=== PATIENT | female | born 1965 | race African-American/Black ===

== ENCOUNTER 2018-03-20 12:25 | Emergency (ER) | payer SELFPAY ==
[2018-03-20] MEDS ORDERED: ONDANSETRON 4 MG TAB.RAPDIS PO ONE (12:55)
[2018-03-20] MEDS ORDERED: ASPIRIN 81 MG TABLET, CHEWABLE PO ONE (12:55)
--- NOTE | 2018-03-20 12:56 | ER Document Report ---
ED Medical Screen (RME) - General Chief Complaint: Chest Pain Stated Complaint: CHEST WALL PAIN Time Seen by Provider: 03/20/18 12:50 Notes: RAPID MEDICAL EVALUATION DISCLOSURE I have seen this patient as part of a Rapid Medical Evaluation and, if applicable, placed any initially appropriate orders. The patient will be seen and fully evaluated, including a full history and physical exam, by a provider ( in Main ED or Fast Track) when a room becomes available. 52-year-old female here with complaints of some right-sided chest pain as well as neck pain ongoing for the past 3 months episodically however started back up again today earlier this morning. The pain is not worse with exertion. She cannot tell me what exactly makes it worse or better. She also complains of some new sore throat as well as upper abdominal pain and diarrhea but no vomiting. EXAM CTAB RRR No chest wall TTP TRAVEL OUTSIDE OF THE [place] IN LAST 30 DAYS: No - Related Data Allergies/Adverse Reactions: No Known Allergies Allergy (Verified 03/20/18 12:27) Past Medical History - Social History Chew tobacco use (# tins/day): No Frequency of alcohol use: None Drug Abuse: None - Past Medical History Cardiac Medical History: Denies: Hx Coronary Artery Disease, Hx Hypertension Endocrine Medical History: Denies: Hx Diabetes Mellitus Type 1, Hx Diabetes Mellitus Type 2 Renal/ Medical History: Denies: Hx Peritoneal Dialysis GI Medical History: Reports: Hx Ulcer Past Surgical History: Reports: Hx Abdominal Surgery - ruptured ulcer, Hx Section - x3, Other - History of hernia repair. Also history of perforated peptic ulcer. - Immunizations Hx Diphtheria, Pertussis, Tetanus Vaccination: Yes Physical Exam - Vital signs Vitals: Temp Pulse Resp BP Pulse Ox 98.9 F 92 18 123/78 96 03/20/18 12:37 03/20/18 12:37 03/20/18 12:37 03/20/18 12:37 03/20/18 12:37 Course - Vital Signs Vital signs: Temp Pulse Resp BP Pulse Ox 98.9 F 92 18 123/78 96 05/23/18 12:37 03/20/18 12:37 03/20/18 12:37 03/20/18 12:37 03/20/18 12:37
--- NOTE | 2018-03-20 13:11 | EKG REPORT ---
SEVERITY:- ABNORMAL ECG - SINUS RHYTHM CONSIDER LEFT VENTRICULAR HYPERTROPHY : Confirmed by: Bay Quinones MD 20-Mar-2018 13:10:59
[2018-03-20 13:40] LABS: HEMATOCRIT 42.4 % (36.0-47.0); HEMOGLOBIN 14.1 g/dL (12.0-15.5); MEAN CORPUSCULAR HEMOGLOBIN 29.2 pg (27.0-33.4); MEAN CORPUSCULAR HGB CONC 33.4 g/dL (32.0-36.0); MEAN CORPUSCULAR VOLUME 88 fl (80-97); PLATELET COUNT 290 10^3/uL (150-450); RED BLOOD COUNT 4.84 10^6/uL (3.72-5.28); RED CELL DISTRIBUTION WIDTH 14.3 % (11.5-14.0); WHITE BLOOD COUNT 7.5 10^3/uL (4.0-10.5)
--- NOTE | 2018-03-20 13:45 | RADIOLOGY REPORT (SQ) ---
EXAM DESCRIPTION: ACUTE ABDOMEN SERIES COMPLETED DATE/TIME: 03/20/2018 1:25 pm REASON FOR STUDY: c/o CP and abd pain w diarrhea COMPARISON: Abdomen series [id number] and chest 09/13/2016 NUMBER OF VIEWS: Three views. TECHNIQUE: Frontal chest, supine abdomen and upright/decubitus abdomen radiographic images acquired. LIMITATIONS: None. FINDINGS: CHEST: Patchy bibasilar changes, little change from prior study 2015 2008. Likely scarrin g. Correlate clinically. Upper lung craft clear. Heart stable. FREE AIR: None. No abnormal gas collections. BOWEL GAS PATTERN: Nonobstructive bowel pattern. Prominent air noted within the stomach. A few flui d levels are noted within nondilated bowel loops. CALCIFICATIONS: No suspicious calcifications. HARDWARE: None in the abdomen. SOFT TISSUES: No gross mass or suggestion of organomegaly. BONES: No acute fracture. No worrisome bone lesions. OTHER: No other significant finding. IMPRESSION: Nonobstructive bowel pattern. TECHNICAL DOCUMENTATION: JOB ID: [id number] [employer]- All Rights Reserved Reading location - IP/workstation name: [email or web address]
[2018-03-20] MEDS ORDERED: LIDOCAINE 2% VISCOUS SOLN 20 ML UDCUP PO ONE (13:57)
[2018-03-20] MEDS ORDERED: MAG HYDROX/AL HYDROX/SIMETH SUSP 30 ML UDCUP PO ONE (13:57)
--- NOTE | 2018-03-20 13:58 | ER Document Report ---
ED General - General Chief Complaint: Chest Pain Stated Complaint: CHEST WALL PAIN Time Seen by Provider: 03/20/18 12:50 Notes: 52-year-old female patient emergency department chief complaint of burning in her chest. Patient states symptoms been present on and off for about 2 months. Has a burning in the back of the throat. Pain in her abdomen. Pain radiates into her chest. Mostly located on the right side. Achiness up in her neck. Patient smokes. Denies any other major medical problems. Patient states that she had a ruptured ulcer which required surgery in 2008. States that since that time she has not had any other problems with ulcers. Denies any black tarry schools. Denies any vomiting of blood. Nothing seems to make it better or worse except for lying flat. When she lies flat it feels like it is burning in her chest more. TRAVEL OUTSIDE OF THE [place] IN LAST 30 DAYS: No - HPI Onset: Other - 2 months ago Onset/Duration: Gradual, Worse Quality of pain: Burning, Dull Severity: Moderate Pain Level: 2 Exacerbated by: Supine Relieved by: Denies Similar symptoms previously: Yes - Related Data Allergies/Adverse Reactions: No Known Allergies Allergy (Verified 03/20/18 12:27) Past Medical History - General Information source: Patient - Social History Smoking Status: Current Every Day Smoker Chew tobacco use (# tins/day): No Frequency of alcohol use: None Drug Abuse: None Lives with: Alone Family History: Reviewed & Not Pertinent Patient has suicidal ideation: No Patient has homicidal ideation: No - Past Medical History Cardiac Medical History: Reports: Hx Hypertension Denies: Hx Coronary Artery Disease Endocrine Medical History: Denies: Hx Diabetes Mellitus Type 1, Hx Diabetes Mellitus Type 2 Renal/ Medical History: Denies: Hx Peritoneal Dialysis GI Medical History: Reports: Hx Ulcer Past Surgical History: Reports: Hx Abdominal Surgery - ruptured ulcer, Hx Section - x3, Other - History of hernia repair. Also history of perforated peptic ulcer. - Immunizations Hx Diphtheria, Pertussis, Tetanus Vaccination: Yes Review of Systems - Review of Systems Constitutional: denies: Fever, Malaise, Weakness EENT: Throat pain, Dental problem. denies: Blurred vision, Ear pain, Difficulty swallowing, Mouth pain, Mouth swelling Cardiovascular: Chest pain. denies: Palpitations, Heart racing, Syncope, Dizziness, Lightheaded, Edema Respiratory: denies: Cough, Hurts to breathe, Short of breath, Wheezing Gastrointestinal: Abdominal pain. denies: Diarrhea, Nausea, Vomiting Genitourinary: denies: Burning, Dysuria, Discharge Female Genitourinary: denies: Vaginal discharge, Vaginal bleeding, Vaginal odor Musculoskeletal: denies: Back pain, Gout, Joint pain, Muscle pain, Muscle stiffness, Neck pain Skin: denies: Dryness, Lesions, Lumps, Rash Hematologic/Lymphatic: denies: Anemia, Blood clots, Easy bleeding, Easy bruising Neurological/Psychological: denies: Confusion, Weakness, Numbness Physical Exam - Vital signs Vitals: Temp Pulse Resp BP Pulse Ox 98.9 F 92 18 123/78 96 03/20/18 12:37 03/20/18 12:37 03/20/18 12:37 03/20/18 12:37 03/20/18 12:37 Interpretation: Normal - General General appearance: Appears well, Alert - HEENT Head: Normocephalic, Atraumatic Eyes: Normal Pupils: PERRL Sinus: Normal Nasal: Normal Mucous membranes: Normal Pharynx: Other - Poor dentition. Multiple broken teeth. No pharyngeal erythema. No uvular swelling. - Respiratory Respiratory status: No respiratory distress Chest status: Nontender Breath sounds: Normal Chest palpation: Normal - Cardiovascular Rhythm: Regular Heart sounds: Normal auscultation Murmur: No - Abdominal Inspection: Normal Distension: No distension Bowel sounds: Normal Tenderness: Nontender Organomegaly: No organomegaly - Back Back: Normal, Nontender - Extremities General upper extremity: Normal inspection, Nontender, Normal color, Normal ROM , Normal temperature General lower extremity: Normal inspection, Nontender, Normal color, Normal ROM , Normal temperature, Normal weight bearing. No: Kirill's sign - Neurological Neuro grossly intact: Yes Cognition: Normal Orientation: AAOx4 Veronica Coma Scale Eye Opening: Spontaneous Veronica Coma Scale Verbal: Oriented Veronica Coma Scale Motor: Obeys Commands Veronica Coma Scale Total: 15 Speech: Normal Motor strength normal: LUE, RUE, LLE, RLE Sensory: Normal - Psychological Associated symptoms: Normal affect, Normal mood - Skin Skin Temperature: Warm Skin Moisture: Dry Skin Color: Normal Course - Re-evaluation Re-evalutation: 03/20/18 14:27 Patient has unremarkable labs. Troponin negative. EKG unremarkable. X-ray of the abdomen and chest unremarkable. Normal LFTs. Bedside ultrasound performed which did not show a dilated or distended gallbladder. No obvious pericholecystic fluid. No free fluid in the abdomen. No pericardial effusion. More likely patient is having some reflux. Will advise her to follow-up with her regular doctor for further evaluation and treatment. We will give her follow-up information for benzene washer as well. I have given her a GI cocktail while in the emergency department. No significant change in her symptoms. Patient has a heart score of 2 indicating she has a low risk for M CONSUELO. 03/20/18 14:29 03/20/18 14:34 Laboratory 03/20/18 03/20/18 03/20/18 13:00 13:00 13:00 WBC 7.5 RBC 4.84 Hgb 14.1 Hct 42.4 MCV 88 MCH 29.2 MCHC 33.4 RDW 14.3 H Plt Count 290 Total Counted 100 Seg Neutrophils % Not Reportable Seg Neuts % (Manual) 43 Lymphocytes % Not Reportable Lymphocytes % (Manual) 52 H Monocytes % Not Reportable Monocytes % (Manual) 4 Eosinophils % Not Reportable Eosinophils % (Manual) 1 Basophils % Not Reportable Basophils % (Manual) 0 Absolute Neutrophils Not Reportable Abs Neuts (Manual) 3.2 Absolute Lymphocytes Not Reportable Abs Lymphs (Manual) 3.9 Absolute Monocytes Not Reportable Abs Monocytes (Manual) 0.3 Absolute Eosinophils Not Reportable Absolute Eos (Manual) 0.1 Absolute Basophils Not Reportable Abs Basophils (Manual) 0.0 Platelet Comment ADEQUATE Poikilocytosis 1+ Ovalocytes 1+ Mickey Cells 1+ Sodium 144.2 Potassium 4.6 Chloride 104 Carbon Dioxide 27 Anion Gap 13 BUN 5 L Creatinine 0.68 Est GFR ( Amer) > 60 Est GFR (Non-Af Amer) > 60 Glucose 101 Calcium 10.2 Total Bilirubin 0.2 Direct Bilirubin 0.2 Neonat Total Bilirubin Not Reportable Neonat Direct Bilirubin Not Reportable Neonat Indirect Bili Not Reportable AST 36 ALT 41 Alkaline Phosphatase 73 Troponin I < 0.012 Total Protein 7.8 Albumin 4.5 Lipase 287.7 Acute Abdomen Series 03/20/18 12:54 IMPRESSION: Nonobstructive bowel pattern. - Vital Signs Vital signs: Temp Pulse Resp BP Pulse Ox 98.9 F 92 18 123/78 96 03/20/18 12:37 03/20/18 12:37 03/20/18 12:37 03/20/18 12:37 03/20/18 12:37 - Laboratory Result Diagrams: 03/20/18 13:00 03/20/18 13:00 Laboratory results interpreted by me: 03/20/18 03/20/18 13:00 13:00 RDW 14.3 H Lymphocytes % (Manual) 52 H BUN 5 L - EKG Interpretation by Me EKG shows normal: Sinus rhythm, [place], Intervals, QRS Complexes, ST-T Waves Discharge - Discharge Clinical Impression: Esophageal spasm, Chest pain in adult Acid reflux disease Qualifiers: Esophagitis presence: esophagitis presence not specified Qualified Code(s): K21.9 - Gastro-esophageal reflux disease without esophagitis Condition: Good Disposition: HOME, SELF-CARE Instructions: Chest Pain of Unclear Cause ([facility]), Antacid Therapy ([facility]), Prilosec (Acid Pump Inhibitor) ([facility]), Reflux Disease (GERD) ([facility]) Prescriptions: Omeprazole Magnesium [Prilosec Otc] 20 mg PO DAILY 30 Days #30 tablet. Ranitidine HCl [Zantac] 150 mg PO BID 30 Days #60 tablet Referrals: MARISSA MELCHOR MD [Primary Care Provider] - Follow up as needed [facility] [Provider Group] - Follow up in 3-5 days
[2018-03-20 14:10] LABS: ABSOLUTE LYMPHOCYTES# (MANUAL) 3.9 10^3/uL (0.5-4.7); ABSOLUTE MONOCYTES # (MANUAL) 0.3 10^3/uL (0.1-1.4); ABSOLUTE NEUTROPHILS# (MANUAL) 3.2 10^3/uL (1.7-8.2); ALANINE AMINOTRANSFERASE 41 U/L (9-52); ALBUMIN 4.5 g/dL (3.5-5.0); ALKALINE PHOSPHATASE 73 U/L (38-126); ANION GAP 13 (5-19); ASPARTATE AMINO TRANSFERASE 36 U/L (14-36); BASOPHILS % (MANUAL) 0 % (0-2); BILIRUBIN,DIRECT 0.2 mg/dL (0.0-0.4); BILIRUBIN,TOTAL 0.2 mg/dL (0.2-1.3); BLOOD UREA NITROGEN 5 mg/dL (7-20); CALCIUM 10.2 mg/dL (8.4-10.2); CARBON DIOXIDE 27 mmol/L (22-30); CHLORIDE 104 mmol/L (98-107); EOSINOPHILS % (MANUAL) 1 % (0-6); GLUCOSE 101 mg/dL (75-110); LIPASE 287.7 U/L (23-300); LYMPHOCYTES % (MANUAL) 52 % (13-45); MONOCYTES % (MANUAL) 4 % (3-13); POTASSIUM 4.6 mmol/L (3.6-5.0); SEGMENTED NEUTROPHILS % (MAN) 43 % (42-78); SODIUM 144.2 mmol/L (137-145); TOTAL CELLS COUNTED 100; TOTAL PROTEIN 7.8 g/dL (6.3-8.2)
[2018-03-20 14:15] LABS: BURR CELLS 1+; OVALOCYTES 1+; POIKILOCYTOSIS 1+
[2018-03-20 14:16] LABS: PLATELET COMMENT ADEQUATE
[2018-03-20] MEDS ORDERED: FAMOTIDINE 20 MG TABLET PO ONE (14:32)
[2018-03-20 14:59] VITALS: BP 139/68
== END 2018-03-20 14:56 | disposition home or self-care (01) ==
LOC: ER 12:25
DX: K22.4 Dyskinesia of esophagus (principal); K21.9 Gastro-esophageal reflux disease without esophagitis; R07.9 Chest pain, unspecified; M54.2 Cervicalgia; F17.200 Nicotine dependence, unspecified, uncomplicated
CPT/HCPCS: 93005; 99285; 36415; 83690; 85025; 80053; 84484; 74022; 93010; S0119; J3490

== ENCOUNTER → 2018-03-21 | Outpatient (CLI) | payer OTHER ==
[2018-03-21 10:46] LABS: ABSOLUTE EOSINOPHILS # (AUTO) 0.1 10^3/uL (0.0-0.6); ABSOLUTE LYMPHOCYTES (AUTO) 2.8 10^3/uL (0.5-4.7); ABSOLUTE MONOCYTES (AUTO) 0.6 10^3/uL (0.1-1.4); ABSOLUTE NEUT (AUTO) 4.4 10^3/uL (1.7-8.2); BASOPHILS % (AUTO) 0.6 % (0-2); EOSINOPHILS % (AUTO) 1.6 % (0-6); HEMATOCRIT 44.9 % (36.0-47.0); HEMOGLOBIN 14.8 g/dL (12.0-15.5); LYMPHOCYTES % (AUTO) 35.2 % (13-45); MEAN CORPUSCULAR HEMOGLOBIN 29.1 pg (27.0-33.4); MEAN CORPUSCULAR HGB CONC 32.9 g/dL (32.0-36.0); MEAN CORPUSCULAR VOLUME 89 fl (80-97); MONOCYTES % (AUTO) 7.9 % (3-13); PLATELET COUNT 241 10^3/uL (150-450); RED BLOOD COUNT 5.08 10^6/uL (3.72-5.28); RED CELL DISTRIBUTION WIDTH 14.3 % (11.5-14.0); SEGMENTED NEUTROPHILS % (AUTO) 54.7 % (42-78); TOTAL CELLS COUNTED % (AUTO) 100 %; WHITE BLOOD COUNT 8.1 10^3/uL (4.0-10.5)
[2018-03-21 11:20] LABS: ALANINE AMINOTRANSFERASE 34 U/L (9-52); ALBUMIN 4.2 g/dL (3.5-5.0); ALKALINE PHOSPHATASE 72 U/L (38-126); ANION GAP 13 (5-19); ASPARTATE AMINO TRANSFERASE 31 U/L (14-36); BILIRUBIN,DIRECT 0.3 mg/dL (0.0-0.4); BILIRUBIN,TOTAL 0.3 mg/dL (0.2-1.3); BLOOD UREA NITROGEN 15 mg/dL (7-20); CALCIUM 10.1 mg/dL (8.4-10.2); CARBON DIOXIDE 26 mmol/L (22-30); CHLORIDE 102 mmol/L (98-107); CHOLESTEROL 159.32 mg/dL (0-200); GLUCOSE 83 mg/dL (75-110); POTASSIUM 4.6 mmol/L (3.6-5.0); SODIUM 140.6 mmol/L (137-145); TOTAL PROTEIN 7.5 g/dL (6.3-8.2); TRIGLYCERIDES 57 mg/dL (<150)
[2018-03-21 11:48] LABS: DIRECT LDL 74 mg/dL (<100)
== END ==
LOC: CCC 09:07
DX: Z00.00 Encounter for general adult medical examination without abnormal findings (principal)
CPT/HCPCS: 36415; 80053; 80061; 83036; 84443; 85025

== ENCOUNTER 2018-05-22 19:12 | Emergency (ER) | payer SELFPAY ==
--- NOTE | 2018-05-22 19:48 | ER Document Report ---
ED General - General Chief Complaint: Chest Pain Stated Complaint: NECK/CHEST/THROAT PAIN Time Seen by Provider: 05/22/18 19:44 Mode of Arrival: Ambulatory Information source: Patient Notes: Chief complaint: Right chest wall pain History of complain:( obtained from----patient) 52 years old female with multiple visit to the ED, and multiple medical problems, cocaine and cannabis abuse, smoking, had her last dose of cocaine last Sunday. Presents with right- sided chest wall pain and right-sided neck pain particularly over the pharyngeal region. Having cough largely dry cough. Denies any fever chills or other constitutional symptoms. Onset: As above Duration: Last few weeks Severity: Moderate Quality: Sharp Context: As above Exacerbating factor and relieving factors: Change of position REVIEW OF SYSTEMS: CONSTITUTIONAL : Denies fever, chills, or sweats. Denies recent illness. EENT: Denies eye, ear, throat, or mouth pain or symptoms. Denies nasal or sinus congestion or discharge. Denies throat, tongue, or mouth swelling or difficulty swallowing. CARDIOVASCULAR: Denies chest pain. Denies palpitations or racing or irregular heart beat. Denies ankle edema. RESPIRATORY: Denies cough, cold, or chest congestion. Denies shortness of breath, difficulty breathing, or wheezing. GASTROINTESTINAL: Denies distention. Denies nausea, vomiting, or diarrhea. Denies blood in vomitus, stools, or per rectum. Denies black, tarry stools. Denies constipation. GENITOURINARY: Denies difficulty urinating, painful urination, burning, frequency, blood in urine, or discharge. FEMALE GENITOURINARY: Denies vaginal bleeding, heavy or abnormal periods, irregular periods. Denies vaginal discharge or odor. MUSCULOSKELETAL: Denies back or neck pain or stiffness. Denies joint pain or swelling. SKIN: Denies rash, lesions or sores. HEMATOLOGIC : Denies easy bruising or bleeding. LYMPHATIC: Denies swollen, enlarged glands. NEUROLOGICAL: Denies confusion or altered mental status. Denies passing out or loss of consciousness. Denies dizziness or lightheadedness. Denies headache. Denies weakness or paralysis or loss of use of either side. Denies problems with gait or speech. Denies sensory loss, numbness, or tingling. Denies seizures. PSYCHIATRIC: Denies anxiety or stress. Denies depression, suicidal ideation, or homicidal ideation. ALL OTHER SYSTEMS REVIEWED AND NEGATIVE. PHYSICAL EXAMINATION: GENERAL: Well-appearing, well-nourished and in no acute distress. HEAD: Atraumatic, normocephalic. EYES: Pupils equal round and reactive to light, extraocular movements intact, conjunctiva are normal. ENT: Nares patent, oropharynx clear without exudates. Moist mucous membranes. NECK: Normal range of motion, supple without lymphadenopathy, tenderness over the right anterior scalene muscles LUNGS: Breath sounds clear to auscultation bilaterally and equal. No wheezes rales or rhonchi. Except on the right upper lobe posteriorly few rhonchi spell heard. HEART: Regular rate and rhythm without murmurs ABDOMEN: Soft, nontender, nondistended abdomen. No guarding, no rebound. No masses appreciated. Examination of genitals-deferred Musculoskeletal: Normal range of motion, no pitting or edema. No cyanosis. NEUROLOGICAL: Cranial nerves grossly intact. Normal speech, normal gait. Normal sensory, motor exams PSYCH: Normal mood, normal affect. SKIN: Warm, Dry, normal turgor, no rashes or lesions noted. Dictation was performed using [employer] voice recognition software TRAVEL OUTSIDE OF THE [place] IN LAST 30 DAYS: No - HPI Notes: Dictated - Related Data Allergies/Adverse Reactions: No Known Allergies Allergy (Verified 03/20/18 12:27) Past Medical History - General Information source: Patient - Social History Smoking Status: Current Every Day Smoker Frequency of alcohol use: None Drug Abuse: Cocaine, Marijuana Family History: Reviewed & Not Pertinent Patient has suicidal ideation: No Patient has homicidal ideation: No - Past Medical History Cardiac Medical History: Reports: Hx Hypertension Denies: Hx Coronary Artery Disease Endocrine Medical History: Denies: Hx Diabetes Mellitus Type 1, Hx Diabetes Mellitus Type 2 Renal/ Medical History: Denies: Hx Peritoneal Dialysis GI Medical History: Reports: Hx Ulcer Past Surgical History: Reports: Hx Abdominal Surgery - ruptured ulcer, Hx Section - x3, Other - History of hernia repair. Also history of perforated peptic ulcer. - Immunizations Hx Diphtheria, Pertussis, Tetanus Vaccination: Yes Review of Systems - Review of Systems Notes: Dictated Physical Exam - Vital signs Vitals: Temp Pulse Resp BP Pulse Ox 98.6 F 82 16 101/72 99 05/22/18 19:33 05/22/18 19:33 05/22/18 19:33 05/22/18 19:33 05/22/18 19:33 - Notes Notes: Dictated Course - Vital Signs Vital signs: Temp Pulse Resp BP Pulse Ox 98.6 F 82 16 101/72 99 05/22/18 19:33 05/22/18 19:33 05/22/18 19:33 05/22/18 19:33 05/22/18 19:33 Discharge - Discharge Referrals: [facility] [Primary [facility] Provider] - Follow up as needed
--- NOTE | 2018-05-22 20:08 | RADIOLOGY REPORT (SQ) ---
EXAM DESCRIPTION: CHEST 2 VIEWS COMPLETED DATE/TIME: 05/22/2018 7:54 pm REASON FOR STUDY: chest pain COMPARISON: None. EXAM PARAMETERS: NUMBER OF VIEWS: two views TECHNIQUE: Digital Frontal and Lateral radiographic views of the chest acquired. RADIATION DOSE: NA LIMITATIONS: none FINDINGS: LUNGS AND PLEURA: Mild airspace disease in the right lung base with suggestion of some air space disease in left lung base as well. There is an irregular opacity in the right upper lung along the mediastinal border that appears to be present on prior exam but is more prominent on today's filemon dy. MEDIASTINUM AND HILAR STRUCTURES: No masses or contour abnormalities. HEART AND VASCULAR STRUCTURES: Heart normal size. No evidence for failure. BONES: No acute findings. HARDWARE: None in the chest. OTHER: No other significant finding. IMPRESSION: 1. Bibasilar mild airspace disease. This may represent atelectasis, however an infectio us process cannot be excluded. 2. Increasing prominence of a irregular opacity in the right upper lung. CT scan of the chest is re commended to exclude a neoplastic process. TECHNICAL DOCUMENTATION: JOB ID: [id number] [employer]- All Rights Reserved Reading location - IP/workstation name: [email or web address]
--- NOTE | 2018-05-22 22:24 | ER Document Report ---
ED General - General Mode of Arrival: Ambulatory Information source: Patient TRAVEL OUTSIDE OF THE [place] IN LAST 30 DAYS: No <NADEGE CHARLES - Last Filed: 05/22/18 23:37> <ASHISH LYON - Last Filed: 05/23/18 02:33> - General Chief Complaint: Chest Pain Stated Complaint: NECK/CHEST/THROAT PAIN Time Seen by Provider: 05/22/18 19:44 Notes: Patient is a 52 year old female with a history of cocaine abuse presents to the emergency department complaining of multiple symptoms including chest pain and right sided neck pain onset 1 month ago as well as a dry cough onset 1 week ago. Patient states the chest pain is located primarily on the right anterior chest wall that started a month ago and has never went away. She states she has had 1 episode of a productive cough with green sputum. Patient denies any fevers or chills. Of significance, patient states her last cocaine use was 5 days ago. (NADEGE CHARLES) - Related Data Allergies/Adverse Reactions: No Known Allergies Allergy (Verified 03/20/18 12:27) Past Medical History - General Information source: Patient - Social History Smoking Status: Current Every Day Smoker Frequency of alcohol use: None Drug Abuse: Cocaine, Marijuana Family History: Reviewed & Not Pertinent Patient has suicidal ideation: No Patient has homicidal ideation: No - Past Medical History Cardiac Medical History: Reports: Hx Hypertension GI Medical History: Reports: Hx Ulcer Past Surgical History: Reports: Hx Abdominal Surgery - ruptured ulcer, Hx Section - x3, Other - History of hernia repair. Also history of perforated peptic ulcer. - Immunizations Hx Diphtheria, Pertussis, Tetanus Vaccination: Yes <NADEGE CHARLES - Last Filed: 05/22/18 23:37> Review of Systems - Review of Systems Constitutional: No symptoms reported EENT: No symptoms reported Cardiovascular: See HPI, Chest pain Respiratory: See HPI, Cough Gastrointestinal: No symptoms reported Genitourinary: No symptoms reported Female Genitourinary: No symptoms reported Musculoskeletal: See HPI, Neck pain Skin: No symptoms reported Hematologic/Lymphatic: No symptoms reported Neurological/Psychological: No symptoms reported -: Yes All other systems reviewed and negative <NADEGE CHARLES - Last Filed: 05/22/18 23:37> Physical Exam - General General appearance: Appears well, Alert In distress: None - HEENT Head: Normocephalic, Atraumatic Eyes: Normal Conjunctiva: Normal Extraocular movements intact: Yes Pupils: PERRL Mucous membranes: Normal Neck: Supple, Other - Tender to the right anterior neck, no mass palpated. - Respiratory Respiratory status: No respiratory distress Chest status: Nontender Breath sounds: Rhonchi Chest palpation: Tender - Right anterior chest wall - Cardiovascular Rhythm: Regular Heart sounds: Normal auscultation Murmur: No Friction rub: No Gallop: None auscultated - Abdominal Inspection: Normal Distension: No distension Bowel sounds: Normal Tenderness: Nontender Organomegaly: No organomegaly - Back Back: Normal - Extremities General upper extremity: Normal ROM General lower extremity: Normal ROM Shoulder: Tender - Right trapezius tender to palpation - Neurological Neuro grossly intact: Yes Cognition: Normal Orientation: AAOx4 [place] Coma Scale Eye Opening: Spontaneous Veronica Coma Scale Verbal: Oriented Veronica Coma Scale Motor: Obeys Commands [place] Coma Scale Total: 15 Speech: Normal - Psychological Associated symptoms: Normal affect, Normal mood - Skin Skin Temperature: Warm Skin Moisture: Dry Skin Color: Normal <NADEGE CHARLES - Last Filed: 05/22/18 23:37> - Vital signs Vitals: Temp Pulse Resp BP Pulse Ox 98.6 F 82 16 101/72 99 05/22/18 19:33 05/22/18 19:33 05/22/18 19:33 05/22/18 19:33 05/22/18 19:33 Course <NADEGE CHARLES - Last Filed: 05/22/18 23:37> - Laboratory Result Diagrams: 05/22/18 23:45 05/22/18 23:45 - Diagnostic Test Radiology reviewed: Image reviewed, Reports reviewed - CT scan shows a 2.0 x 2.8 cm. Differential includes hamartoma, granulomatous disease, and neoplasm. Recommendations are for the needle biopsy or repeat CT in about 3 months. <ASHISH LYON - Last Filed: 05/23/18 02:33> - Re-evaluation Re-evalutation: 05/23/18 02:28 Patient was given a copy of the radiologist report an explanation of what those findings mean and what she should do in the future. She was actually sound asleep so her chest pain cannot be too terribly bad. ( ASHISH LYON) - Vital Signs Vital signs: Temp Pulse Resp BP Pulse Ox 98.6 F 82 30 H 157/88 H 97 05/22/18 19:33 05/22/18 19:33 05/23/18 01:37 05/23/18 01:37 05/23/18 01:37 - Laboratory Laboratory results interpreted by me: 05/22/18 05/22/18 05/23/18 23:45 23:45 01:35 RDW 14.1 H Seg Neutrophils % 33.9 L Lymphocytes % 49.1 H Sodium 145.6 H Total Protein 8.3 H Urine Urobilinogen 2.0 H Ur Leukocyte Esterase TRACE H Discharge <NADEGE CHARLES - Last Filed: 05/22/18 23:37> <ASHISH LYON - Last Filed: 05/23/18 02:33> - Discharge Clinical Impression: Bronchitis, Chest wall pain, Mass of upper lobe of right lung High blood pressure Qualifiers: Hypertension type: essential hypertension Qualified Code(s): I10 - Essential ( primary) hypertension Condition: Stable Disposition: HOME, SELF-CARE Additional Instructions: Bronchitis You have acute bronchitis. This disease is an infection or inflammation of the air passageways in your lungs. Symptoms usually include cough, low grade fever, shortness of breath, and wheezing. The cough usually persists for a couple of weeks. Most cases of bronchitis get better without antibiotics. We prescribe antibiotics when we believe bacteria are damaging your airways, or if there's high risk the bronchitis will worsen into pneumonia. Increase your fluid intake. A cool mist humidifier may make your lungs more comfortable. An expectorant (cough medicine that loosens phlegm) can help. If you smoke, STOP!!! Recovery from bronchitis can be somewhat slow, but you should see improvement within a day or two. Repeated episodes of bronchitis may result in lung damage -- for example, chronic bronchitis, recurrent pneumonias, or emphysema. Call the doctor if you develop increasing fever, shortness of breath, chest pain, bloody sputum, or otherwise worsen. If you have not improved at all after several days, contact the physician. Chest Wall Pain Your chest pain has been diagnosed as coming from the chest wall. This is often caused by straining the muscles or joints in the chest during physical activity, direct trauma, coughing, or vigorous vomiting. Persons with arthritis are especially prone to this type of pain, due to inflammation of the cartilage joints near the breast bone. Occasionally, no cause can be found. Rest from strenuous physical activity. This kind of chest pain is usually made worse by movement of the chest. Depending on the symptoms, we may prescribe medicine for pain, muscle relaxation, and antiinflammatory effects. If the pain is new, and seems to be due to muscle strain, cold packs can help. Otherwise, apply gentle warmth to the painful area for 15 minutes every hour or two. You should contact the doctor immediately if things change. Further evaluation is needed if you develop a fever or cough, if the nature of the pain changes, or if you become short of breath. High Blood Pressure When your blood pressure was taken today it was elevated. Hypertension: The patient has been informed that they have Hypertension based on a blood pressure reading in the emergency department. I recommend that the patient call the primary care provider listed on their discharge instructions or a physician of their choice this wee to arrange follow up for further evaluation of possible pre-hypertension or Hypertension. Some simple things you can do to help are: If you have blood pressure medicine but aren't using it regularly, start taking it again. Get some aerobic exercise for at least 20 minutes on a daily basis. (See your doctor before beginning a new exercise program.) Eat a low-fat diet. Lose excess weight. Avoid salty foods and avoid adding salt to any of the foods you eat. Avoid diet pills, decongestants, "energizing" herbs, and other medicines that elevate blood pressure. If left untreated, hypertension greatly enhances your risk for developing heart disease and strokes. Please don't ignore this problem. Take Tylenol and ibuprofen for your chest wall pain. Try Robitussin-DM to help control your cough. Stop smoking. Drink plenty of fluids and get plenty of rest. Take the copy of the CT scan results to follow-up with a local medical doctor. Follow-up with a local medical doctor in the next 1-2 weeks to evaluate your need for blood pressure medication and to review the CT scan findings. RETURN TO THE EMERGENCY ROOM IF ANY NEW OR WORSENING SYMPTOMS. Referrals: [facility] [NO LOCAL MD] - Follow up as needed Scribe Attestation: 05/22/18 23:34 I personally performed the services described in the documentation, reviewed and edited the documentation which was dictated to the scribe in my presence, and it accurately records my words and actions. (ASHISH LYON) Scribe Documentation - Scribe Written by Pura:: Pura Garay 05/22/2018 22:31 acting as scribe for :: Irene <NADEGE CHARLES - Last Filed: 05/22/18 23:37>
--- NOTE | 2018-05-22 23:01 | EKG REPORT ---
SEVERITY:- ABNORMAL ECG - SINUS RHYTHM ATRIAL PREMATURE COMPLEX CONSIDER LEFT VENTRICULAR HYPERTROPHY : Confirmed by: Dora Lamas MD 22-May-2018 23:01:07
[2018-05-23 00:09] LABS: ABSOLUTE BASOPHILS # (AUTO) 0.1 10^3/uL (0.0-0.2); ABSOLUTE EOSINOPHILS # (AUTO) 0.4 10^3/uL (0.0-0.6); ABSOLUTE MONOCYTES (AUTO) 0.9 10^3/uL (0.1-1.4); ABSOLUTE NEUT (AUTO) 2.7 10^3/uL (1.7-8.2); BASOPHILS % (AUTO) 0.8 % (0-2); EOSINOPHILS % (AUTO) 4.6 % (0-6); HEMATOCRIT 39.5 % (36.0-47.0); HEMOGLOBIN 13.6 g/dL (12.0-15.5); LYMPHOCYTES % (AUTO) 49.1 % (13-45); MEAN CORPUSCULAR HEMOGLOBIN 29.7 pg (27.0-33.4); MEAN CORPUSCULAR HGB CONC 34.4 g/dL (32.0-36.0); MEAN CORPUSCULAR VOLUME 86 fl (80-97); MONOCYTES % (AUTO) 11.6 % (3-13); PLATELET COUNT 305 10^3/uL (150-450); RED BLOOD COUNT 4.57 10^6/uL (3.72-5.28); RED CELL DISTRIBUTION WIDTH 14.1 % (11.5-14.0); SEGMENTED NEUTROPHILS % (AUTO) 33.9 % (42-78); TOTAL CELLS COUNTED % (AUTO) 100 %
[2018-05-23 00:37] LABS: ALANINE AMINOTRANSFERASE 26 U/L (9-52); ALBUMIN 4.4 g/dL (3.5-5.0); ALKALINE PHOSPHATASE 81 U/L (38-126); ANION GAP 12 (5-19); ASPARTATE AMINO TRANSFERASE 30 U/L (14-36); BILIRUBIN,DIRECT 0.2 mg/dL (0.0-0.4); BILIRUBIN,TOTAL 0.3 mg/dL (0.2-1.3); BLOOD UREA NITROGEN 15 mg/dL (7-20); CALCIUM 9.7 mg/dL (8.4-10.2); CARBON DIOXIDE 30 mmol/L (22-30); CHLORIDE 104 mmol/L (98-107); CREATINE KINASE 35 U/L (30-135); GLUCOSE 88 mg/dL (75-110); POTASSIUM 3.9 mmol/L (3.6-5.0); SODIUM 145.6 mmol/L (137-145); TOTAL PROTEIN 8.3 g/dL (6.3-8.2)
[2018-05-23 01:56] LABS: APPEARANCE,URINE CLEAR; BILIRUBIN,URINE NEGATIVE (NEGATIVE); COLOR,URINE YELLOW; GLUCOSE, URINE NEGATIVE (NEGATIVE); KETONES,URINE NEGATIVE (NEGATIVE); LEUKOCYTE ESTERASE,URINE TRACE (NEGATIVE); NITRITE,URINE NEGATIVE (NEGATIVE); PROTEIN,URINE NEGATIVE (NEGATIVE); URINE SPECIFIC GRAVITY 1.027
--- NOTE | 2018-05-23 01:59 | RADIOLOGY REPORT (SQ) ---
EXAM DESCRIPTION: CT CHEST WITH IV CONTRAST, CT NECK CHEST WITH IV CONTRAST COMPLETED DATE/TME: 05/23/2018 00:00 CLINICAL HISTORY: RUL mass COMPARISON: None Available. TECHNIQUE: Axial CT images of the neck soft tissues and chest obtained following the uncomplicated intravenous administration of 80 mL Isovue-370 DLP: 649.54 mGy-cm FINDINGS: Soft tissue neck: Visualized orbits and globes are unremarkable. Visualized paranasal sinuses and mastoid air cells are well aerated. 10 base is symmetric. No abnormalities of the parotid or submandibular glands. No significant cervical lymphadenopathy. No abnormalities of the carotid or jugular veins identified. Thyroid gland is unremarkable. No abnormalities in the pharyngeal mucosal space, parapharyngeal space, or retropharyngeal space. The visceral space is unremarkable. Degenerative change of the cervical spine. No acute osseous abnormalities identified. Chest: Thyroid:No abnormalities of the visualized thyroid. Great Vessels: Aberrant right subclavian artery. Thoracic Aorta: Atherosclerotic calcification of the thoracic aortic arch. Pulmonary arteries:The main pulmonary artery is not dilated. Heart:No cardiomegaly, significant pericardial effusion, or coronary artery atherosclerosis Lymph Nodes:No enlarged mediastinal lymph nodes identified. Esophagus:No abnormalities of the esophagus identified Other:No additional findings. Lungs: In the right upper lobe there is a pleural based mass with internal calcifications measuring 2.8 x 2.0 cm. No macroscopic fat identified. Minimal bilateral dependent atelectasis. Pleura:No pleural effusion or pneumothorax. Trachea/Airways:No abnormalities of the visualized trachea or airways. Bones:No destructive osseous lesions. Upper Abdomen: Limited images of the upper abdomen demonstrate no definite abnormalities of visualized portions of the liver, spleen, adrenal glands, or left kidney. IMPRESSION: 1. There is a 2.8 x 2.0 cm pleural-based right upper lung mass with internal calcifications. Given internal calcifications pulmonary hamartoma or granulomatous disease are considerations however malignancy cannot completely be excluded based on imaging findings. Needle biopsy may be required for definitive characterization. Alternatively, short interval follow-up CT chest in 3 months would be recommended. This exam was performed according to our departmental dose-optimization program, which includes automated exposure control, adjustment of the mA and/or kV according to patient size and/or use of iterative reconstruction technique.
[2018-05-23] MEDS ORDERED: NORMAL SALINE 1000 ML 1,000 ML IV ONE (02:14)
[2018-05-23 03:17] VITALS: BP 132/82
== END 2018-05-23 03:41 | disposition home or self-care (01) ==
LOC: ER 19:12
DX: J40 Bronchitis, not specified as acute or chronic (principal); R91.8 Other nonspecific abnormal finding of lung field; R05 Cough; R07.89 Other chest pain; F12.10 Cannabis abuse, uncomplicated; F14.10 Cocaine abuse, uncomplicated; F17.200 Nicotine dependence, unspecified, uncomplicated; I10 Essential (primary) hypertension
CPT/HCPCS: 93005; 99285; 96360; 36415; 82550; 83735; 85025; 80053; 81001; 71046; 70491; 71260; 93010; J7030

== ENCOUNTER 2018-09-02 13:12 | Emergency (ER) | payer SELFPAY ==
[2018-09-02] MEDS ORDERED: ONDANSETRON HCL INJ/PF 4 MG/2 ML SDV IV ONE (13:50)
[2018-09-02] MEDS ORDERED: FENTANYL CITRATE INJ/PF 100 MCG/2 ML AMPUL IV ONE (13:51)
--- NOTE | 2018-09-02 13:54 | ER Document Report ---
ED Medical Screen (RME) - General Chief Complaint: Abdominal Pain Stated Complaint: ABDOMINAL PAIN Time Seen by Provider: 09/02/18 13:45 Mode of Arrival: Ambulatory Information source: Patient Notes: 53-year-old female presents emergency department with a 3-day history of nausea , vomiting, diarrhea, left upper quadrant pain, rhinorrhea, sore throat, nonproductive cough. Patient states that she has a history of small cell lung cancer and is currently undergoing chemotherapy. She states that she is supposed to start radiation therapy soon. Last dose of chemotherapy was 6 days ago. I have greeted and performed a rapid initial assessment of this patient. A comprehensive ED assessment and evaluation of the patient, analysis of test results and completion of the medical decision making process will be conducted by additional ED providers. PHYSICAL EXAMINATION: GENERAL: Well-appearing, well-nourished and in no acute distress. HEAD: Atraumatic, normocephalic. EYES: Pupils equal round extraocular movements intact, conjunctiva are normal. ENT: Nares patent NECK: Normal range of motion LUNGS: No respiratory distress Musculoskeletal: Normal range of motion NEUROLOGICAL: Normal speech, normal gait. PSYCH: Normal mood, normal affect. SKIN: Warm, Dry, normal turgor, no rashes or lesions noted. TRAVEL OUTSIDE OF THE [place] IN LAST 30 DAYS: No - Related Data Allergies/Adverse Reactions: No Known Allergies Allergy (Verified 03/20/18 12:27) Past Medical History - Past Medical History Cardiac Medical History: Reports: Hx Hypertension Denies: Hx Coronary Artery Disease Endocrine Medical History: Denies: Hx Diabetes Mellitus Type 1, Hx Diabetes Mellitus Type 2 Renal/ Medical History: Denies: Hx Peritoneal Dialysis GI Medical History: Reports: Hx Ulcer Past Surgical History: Reports: Hx Abdominal Surgery - ruptured ulcer, Hx Section - x3, Other - History of hernia repair. Also history of perforated peptic ulcer. - Immunizations Hx Diphtheria, Pertussis, Tetanus Vaccination: Yes Physical Exam - Vital signs Vitals: Temp Pulse Resp BP Pulse Ox 99.0 F 99 16 142/75 H 98 09/02/18 13:19 09/02/18 13:19 09/02/18 13:19 09/02/18 13:19 09/02/18 13:19 Course - Vital Signs Vital signs: Temp Pulse Resp BP Pulse Ox 99.0 F 99 16 142/75 H 98 09/02/18 13:19 09/02/18 13:19 09/02/18 13:19 09/02/18 13:19 09/02/18 13:19 Doctor's Discharge - Discharge Referrals: MARISSA MELCHOR MD [Primary Care Provider] - Follow up as needed
[2018-09-02] MEDS ORDERED: NORMAL SALINE 1000 ML 1,000 ML IV ONE (15:06)
--- NOTE | 2018-09-02 15:07 | ER Document Report ---
ED General - General Mode of Arrival: Ambulatory Information source: Patient TRAVEL OUTSIDE OF THE [place] IN LAST 30 DAYS: No - HPI Onset: Last week Onset/Duration: Persistent Quality of pain: Achy Pain Level: 4 Associated symptoms: Nonproductive cough - Mild cough off and on, Diarrhea, Nausea, Vomiting. denies: Chest pain, Fever, Shortness of breath Exacerbated by: Denies Relieved by: Denies Similar symptoms previously: No Recently seen / treated by doctor: No <LUIS ALFREDO SEBASTIAN - Last Filed: 09/02/18 19:13> <JERMAINE FARR - Last Filed: 09/02/18 20:38> - General Chief Complaint: Abdominal Pain Stated Complaint: ABDOMINAL PAIN Time Seen by Provider: 09/02/18 13:45 Notes: Patient presents complaining of a 3-day history of nausea vomiting and diarrhea with left upper quadrant abdominal pain. Patient states she has had pain like this before when she had a perforated ulcer. Patient does report mild cough that is been off and on. Patient does have a history of small cell lung cancer for which she receives chemotherapy. Patient's last treatment was 6 days ago when she does have an appointment in 2 days for additional chemotherapy. Patient denies any fever. Patient denies any urinary symptoms. Patient does have a history of previous cocaine use but states she last used cocaine 1 week ago. (LUIS ALFREDO SEBASTIAN) - Related Data Allergies/Adverse Reactions: No Known Allergies Allergy (Verified 03/20/18 12:27) Past Medical History - General Information source: Patient - Social History Smoking Status: Current Every Day Smoker Smoking Education Provided: Yes Frequency of alcohol use: None Drug Abuse: Cocaine, Marijuana Occupation: None Family History: Reviewed & Not Pertinent Patient has suicidal ideation: No Patient has homicidal ideation: No - Past Medical History Cardiac Medical History: Reports: Hx Hypertension Denies: Hx Coronary Artery Disease Endocrine Medical History: Denies: Hx Diabetes Mellitus Type 1, Hx Diabetes Mellitus Type 2 Renal/ Medical History: Denies: Hx Peritoneal Dialysis Malignancy Medical History: Reports: Hx Lung Cancer GI Medical History: Reports: Hx Ulcer Past Surgical History: Reports: Hx Abdominal Surgery - ruptured ulcer, Hx Section - x3, Hx Herniorrhaphy, Other - History of hernia repair. Also history of perforated peptic ulcer. - Immunizations Hx Diphtheria, Pertussis, Tetanus Vaccination: Yes <LUIS ALFREDO SEBASTIAN - Last Filed: 09/02/18 19:13> Review of Systems - Review of Systems Constitutional: No symptoms reported. denies: Fever, Recent illness EENT: No symptoms reported Cardiovascular: No symptoms reported. denies: Chest pain Respiratory: Cough. denies: Hurts to breathe, Short of breath Gastrointestinal: Abdominal pain, Diarrhea, Nausea, Vomiting Genitourinary: No symptoms reported. denies: Dysuria, Flank pain Female Genitourinary: No symptoms reported Musculoskeletal: No symptoms reported. denies: Back pain Skin: No symptoms reported Hematologic/Lymphatic: No symptoms reported Neurological/Psychological: No symptoms reported <LUIS ALFREDO SEBASTIAN - Last Filed: 09/02/18 19:13> Physical Exam - General General appearance: Appears well, Alert In distress: None - HEENT Head: Normocephalic, Atraumatic Eyes: Normal Conjunctiva: Normal Nasal: Normal Mouth/Lips: Normal Mucous membranes: Normal Neck: Normal, Supple. No: Lymphadenopathy - Respiratory Respiratory status: No respiratory distress Chest status: Nontender Breath sounds: Normal. No: Rales, Rhonchi, Stridor, Wheezing Chest palpation: Normal - Cardiovascular Rhythm: Regular Heart sounds: S1 appreciated, S2 appreciated Murmur: No - Abdominal Inspection: Other - linear scar to abd Distension: No distension Bowel sounds: Normal Tenderness: Tender - LUQ Organomegaly: No organomegaly - Back Back: Normal, Nontender. No: CVA tenderness - Extremities General upper extremity: Normal inspection, Normal ROM General lower extremity: Normal inspection, Normal ROM - Neurological Neuro grossly intact: Yes Cognition: Normal Veronica Coma Scale Eye Opening: Spontaneous Veronica Coma Scale Verbal: Oriented Veronica Coma Scale Motor: Obeys Commands Veronica Coma Scale Total: 15 - Psychological Associated symptoms: Normal affect, Normal mood - Skin Skin Temperature: Warm Skin Moisture: Dry Skin Color: Normal <LUIS ALFREDO SEBASTIAN - Last Filed: 09/02/18 19:13> - Vital signs Vitals: Temp Pulse Resp BP Pulse Ox 99.0 F 99 16 142/75 H 98 09/02/18 13:19 09/02/18 13:19 09/02/18 13:19 09/02/18 13:19 09/02/18 13:19 Course - Laboratory Result Diagrams: 09/02/18 15:35 09/02/18 15:35 <LUIS ALFREDO SEBASTIAN - Last Filed: 09/02/18 19:13> - Laboratory Result Diagrams: 09/02/18 15:35 09/02/18 15:35 <JERMAINE FARR - Last Filed: 09/02/18 20:38> - Re-evaluation Re-evalutation: 09/02/18 15:06 Patient declines to get off of her cell phone, provider will return when she is done with a conversation for her physical examination at this time. 09/02/18 17:13 Patient vomited, additional nausea medication given. 09/02/18 19:13 Bedside report and handoff given to Alfredo Farr (LUIS ALFREDO SEBASTIAN) 09/02/18 20:[address] scan shows no abnormalities at this time, no leukocytosis. Urine sent for culture. Patient denies dysuria. Discussed need to follow-up with gastroenterology. Will discharge home with antinausea medications. Patient has not vomited in the emergency room, states she no longer is nauseated and her pain has since resolved. Discussed with patient need to stop abusing illicit drugs. Return precautions discussed (JERMAINE FARR) - Vital Signs Vital signs: Temp Pulse Resp BP Pulse Ox 99.0 F 99 16 142/75 H 98 09/02/18 13:19 09/02/18 13:19 09/02/18 13:19 09/02/18 13:19 09/02/18 13:19 - Laboratory Laboratory results interpreted by me: 09/02/18 09/02/18 09/02/18 15:35 15:35 16:19 RDW 17.7 H Plt Count 100 L Seg Neuts % (Manual) 29 L Lymphocytes % (Manual) 67 H Monocytes % (Manual) 1 L Abs Neuts (Manual) 1.4 L Abs Monocytes (Manual) 0.0 L Lipase 393.1 H Urine Blood SMALL H Urine Urobilinogen 4.0 H Ur Leukocyte Esterase MODERATE H Discharge <LUIS ALFREDO SEBASTIAN - Last Filed: 09/02/18 19:13> <JERMAINE FARR - Last Filed: 09/02/18 20:38> - Discharge Clinical Impression: Cocaine abuse Nausea & vomiting Qualifiers: Vomiting type: unspecified Vomiting Intractability: non-intractable Qualified Code(s): R11.2 - Nausea with vomiting, unspecified Diarrhea Qualifiers: Diarrhea type: unspecified type Qualified Code(s): R19.7 - Diarrhea, unspecified Condition: Stable Disposition: HOME, SELF-CARE Instructions: Antinausea Medication ([facility]), Abdominal Pain ([facility]), Diarrhea, Nonspecific ([facility]), Intravenous (IV) Fluids ([facility]) Additional Instructions: As we discussed you have been seen and treated in the emergency department for nausea, vomiting, diarrhea. Your CT scan shows no signs of abnormalities at this time. To better look at your stomach you need to follow-up with gastroenterology who can then use a camera to check for an ulcer. Please take medications as prescribed. Please refrain from any illicit drug use. Please return to the emergency room for any other concerning symptoms Prescriptions: Famotidine [Pepcid 40 mg Tablet] 40 mg PO BID #60 tablet Ondansetron [Zofran Odt 4 mg Tablet] 1 - 2 tab PO Q4H PRN #15 tab.rapdis PRN Reason: For Nausea/Vomiting Referrals: MARISSA MELCHOR MD [Primary Care Provider] - Follow up as needed
--- NOTE | 2018-09-02 15:36 | RADIOLOGY REPORT (SQ) ---
EXAM DESCRIPTION: CHEST 2 VIEWS COMPLETED DATE/TIME: 09/02/2018 1:52 pm REASON FOR STUDY: cough COMPARISON: 05/22/2018 EXAM PARAMETERS: NUMBER OF VIEWS: two views TECHNIQUE: Digital Frontal and Lateral radiographic views of the chest acquired. RADIATION DOSE: NA LIMITATIONS: none FINDINGS: LUNGS AND PLEURA: No acute infiltrate or effusion. No change in the appearance of the eleni gs except that right paramediastinal density in the right upper lobe on the prior study is no longer evident. MEDIASTINUM AND HILAR STRUCTURES: No masses or contour abnormalities. HEART AND VASCULAR STRUCTURES: Heart normal size. No evidence for failure. BONES: No acute findings. HARDWARE: None in the chest. OTHER: No other significant finding. IMPRESSION: NO ACUTE RADIOGRAPHIC FINDING IN THE CHEST. TECHNICAL DOCUMENTATION: JOB ID: [id number] [employer]- All Rights Reserved Reading location - IP/workstation name: [email or web address]
[2018-09-02 15:44] LABS: A TYPE INFLUENZA AG NEGATIVE (NEGATIVE); B INFLUENZA AG NEGATIVE (NEGATIVE)
[2018-09-02 15:56] LABS: HEMATOCRIT 36.9 % (36.0-47.0); HEMOGLOBIN 12.6 g/dL (12.0-15.5); MEAN CORPUSCULAR HEMOGLOBIN 29.3 pg (27.0-33.4); MEAN CORPUSCULAR HGB CONC 34.2 g/dL (32.0-36.0); MEAN CORPUSCULAR VOLUME 86 fl (80-97); PLATELET COUNT 100 10^3/uL (150-450); RED BLOOD COUNT 4.31 10^6/uL (3.72-5.28); RED CELL DISTRIBUTION WIDTH 17.7 % (11.5-14.0); WHITE BLOOD COUNT 4.9 10^3/uL (4.0-10.5)
[2018-09-02 16:09] LABS: ALANINE AMINOTRANSFERASE 21 U/L (9-52); ALBUMIN 4.1 g/dL (3.5-5.0); ALKALINE PHOSPHATASE 81 U/L (38-126); ANION GAP 11 (5-19); ASPARTATE AMINO TRANSFERASE 21 U/L (14-36); BILIRUBIN,DIRECT 0.2 mg/dL (0.0-0.4); BILIRUBIN,TOTAL 0.4 mg/dL (0.2-1.3); BLOOD UREA NITROGEN 19 mg/dL (7-20); CALCIUM 9.5 mg/dL (8.4-10.2); CARBON DIOXIDE 25 mmol/L (22-30); CHLORIDE 104 mmol/L (98-107); GLUCOSE 94 mg/dL (75-110); LIPASE 393.1 U/L (23-300); POTASSIUM 4.7 mmol/L (3.6-5.0); SODIUM 139.8 mmol/L (137-145); TOTAL PROTEIN 7.1 g/dL (6.3-8.2)
[2018-09-02 16:42] LABS: APPEARANCE,URINE SLIGHTLY-CLOUDY; BILIRUBIN,URINE NEGATIVE (NEGATIVE); COLOR,URINE YELLOW; GLUCOSE, URINE NEGATIVE (NEGATIVE); KETONES,URINE NEGATIVE (NEGATIVE); LEUKOCYTE ESTERASE,URINE MODERATE (NEGATIVE); NITRITE,URINE NEGATIVE (NEGATIVE); PROTEIN,URINE NEGATIVE (NEGATIVE); URINE SPECIFIC GRAVITY 1.013
[2018-09-02 16:45] LABS: ABSOLUTE LYMPHOCYTES# (MANUAL) 3.3 10^3/uL (0.5-4.7); ABSOLUTE NEUTROPHILS# (MANUAL) 1.4 10^3/uL (1.7-8.2); BASOPHILS % (MANUAL) 1 % (0-2); EOSINOPHILS % (MANUAL) 2 % (0-6); LYMPHOCYTES % (MANUAL) 67 % (13-45); MONOCYTES % (MANUAL) 1 % (3-13); SEGMENTED NEUTROPHILS % (MAN) 29 % (42-78); TOTAL CELLS COUNTED 100
[2018-09-02 16:47] LABS: OVALOCYTES SLIGHT; PLATELET COMMENT DECREASED; POIKILOCYTOSIS SLIGHT; TARGET CELLS SLIGHT
[2018-09-02 16:57] LABS: URINE AMPHETAMINES SCREEN NEGATIVE; URINE BARBITURATES SCREEN NEGATIVE; URINE BENZODIAZEPINES SCREEN NEGATIVE; URINE COCAINE SCREEN UNCONFIRMED POSITIVE; URINE MARIJUANA (THC) SCREEN UNCONFIRMED POSITIVE; URINE METHADONE SCREEN NEGATIVE; URINE PHENCYCLIDINE SCREEN NEGATIVE
[2018-09-02] MEDS ORDERED: PROCHLORPERAZINE EDISYLATE INJ 10 MG/2 ML VIAL IV ONE (17:12)
--- NOTE | 2018-09-02 18:30 | EKG REPORT ---
SEVERITY:- ABNORMAL ECG - SINUS RHYTHM PROBABLE LEFT ATRIAL ABNORMALITY PROBABLE LEFT VENTRICULAR HYPERTROPHY : Confirmed by: Bay Quinones MD 02-Sep-2018 18:30:16
--- NOTE | 2018-09-02 20:25 | RADIOLOGY REPORT (SQ) ---
EXAM DESCRIPTION: CT ABD/PELVIS WITH IV ORAL COMPLETED DATE/TIME: 09/02/2018 8:08 pm REASON FOR STUDY: LUQ pain, hx lung CA, hx perf ulcer COMPARISON: None. TECHNIQUE: CT scan of the abdomen and pelvis performed using helical scanning technique with dynamic intravenous contrast injection. Oral contrast. Images reviewed with lung, soft tissue, and bone win dows. Reconstructed coronal and sagittal MPR images reviewed. Delayed images for evaluation of the ur inary system also acquired. All images stored on PACS. All CT scanners at this facility use dose modulation, iterative reconstruction, and/or weight based d osing when appropriate to reduce radiation dose to as low as reasonably achievable (ALARA). [facility]: Dose Right [facility]: CareDose [facility]: Dose Right [facility]: Teradose 4D [facility]: [employer] CONTRAST TYPE AND DOSE: contrast/concentration: Isovue 350.00 mg/ml; Total Contrast Delivered: 56.0 ml; Total Saline Delivered: 23.0 ml RENAL FUNCTION: BUN 19 creatinine 1 in RADIATION DOSE: CT Rad equipment meets quality standard of care and radiation dose reduction techniq ues were employed. CTDIvol: 4.8 - 5.0 mGy. DLP: 443 mGy-cm.. LIMITATIONS: None. FINDINGS: LOWER CHEST: No significant findings. No nodules or infiltrates. LIVER: Normal size. No masses. No dilated ducts. SPLEEN: Normal size. No focal lesions. PANCREAS: No masses. No significant calcifications. No adjacent inflammation or peripancreatic fluid collections. Pancreatic duct not dilated. GALLBLADDER: No identified stones by CT criteria. No inflammatory changes to suggest cholecystitis. ADRENAL GLANDS: No significant masses or asymmetry. RIGHT KIDNEY AND URETER: No solid masses. No significant calcifications. No hydronephrosis or hyd roureter. LEFT KIDNEY AND URETER: No solid masses. No significant calcifications. No hydronephrosis or hydr oureter. AORTA AND VESSELS: No aneurysm. No dissection. Renal arteries, SMA, celiac without stenosis. RETROPERITONEUM: No retroperitoneal adenopathy, hemorrhage or masses. BOWEL AND PERITONEAL CAVITY: No masses or inflammatory changes. No free fluid or peritoneal masses. APPENDIX: Normal. PELVIS: No mass. No free fluid. Normal bladder. ABDOMINAL WALL: No masses. No hernias. BONES: No significant or acute findings. OTHER: No other significant finding. IMPRESSION: NO SIGNIFICANT OR ACUTE FINDING IN THE ABDOMEN OR PELVIS ON CT SCAN WITH IV CONTRAST. TECHNICAL DOCUMENTATION: JOB ID: [id number] Quality ID # [id number]: Final reports with documentation of one or more dose reduction techniques (e.g., Au tomated exposure control, adjustment of the mA and/or kV according to patient size, use of iterative reconstruction technique) 2010 [employer]- All Rights Reserved Reading location - IP/workstation name: [email or web address]
[2018-09-02 20:50] VITALS: BP 115/60
== END 2018-09-02 20:49 | disposition home or self-care (01) ==
LOC: ER 13:12
DX: F14.10 Cocaine abuse, uncomplicated (principal); R11.2 Nausea with vomiting, unspecified; R19.7 Diarrhea, unspecified; R10.12 Left upper quadrant pain; R05 Cough; F12.10 Cannabis abuse, uncomplicated; F17.200 Nicotine dependence, unspecified, uncomplicated; I10 Essential (primary) hypertension
CPT/HCPCS: 93005; 99285; 96361; 96374; 96375; 36415; 87086; 83690; 85025; 80053; 81001; 84484; 80307; 87804; 71046; 74177; 93010; J3010; J0780; J2405; J7030

== ENCOUNTER 2018-09-16 13:08 | Emergency (ER) | payer MEDICAID ==
[2018-09-16] MEDS ORDERED: DEXAMETHASONE SOD PHOS INJ 10 MG/1 ML VIAL IM ONE (15:20)
[2018-09-16] MEDS ORDERED: FAMOTIDINE 20 MG TABLET PO ONE (15:20)
--- NOTE | 2018-09-16 15:20 | ER Document Report ---
ED Skin Rash/Insect Bite/Abscs - General Chief Complaint: Rash Stated Complaint: RASH Time Seen by Provider: 09/16/18 15:14 Mode of Arrival: Ambulatory Information source: Patient Notes: Patient is a 53-year-old female comes emergency room complaining of a rash all over. Patient states this started 3-4 days ago and it is extremely pruritic. She states that it started when minute she got out of the shower or the bathtub and put on her pajamas and she thought it was closed but then she realized that she is been diagnosed with lung cancer small cell and she is receiving chemotherapy and they informed her that she could break out in a itchy rash and that is apparently what she believes is happened. She denies any shortness of breath increase or she denies any difficulty swallowing. She is tried some psoriasis itch cream that she got it [facility] but it is not working. She also states that she is due to get a PET scan tomorrow and start radiation treatments on 23 September. Patient denies any new shortness of breath. The rash is systemic appears to have spared the face. TRAVEL OUTSIDE OF THE [place] IN LAST 30 DAYS: No - Related Data Allergies/Adverse Reactions: No Known Allergies Allergy (Verified 03/20/18 12:27) Past Medical History - General Information source: Patient - Social History Smoking Status: Former Smoker Cigarette use (# per day): No Chew tobacco use (# tins/day): No Smoking Education Provided: No Frequency of alcohol use: Occasional Drug Abuse: None Family History: Reviewed & Not Pertinent - Past Medical History Cardiac Medical History: Reports: Hx Hypertension Denies: Hx Coronary Artery Disease Endocrine Medical History: Denies: Hx Diabetes Mellitus Type 1, Hx Diabetes Mellitus Type 2 Renal/ Medical History: Denies: Hx Peritoneal Dialysis Malignancy Medical History: Reports: Hx Lung Cancer GI Medical History: Reports: Hx Ulcer Past Surgical History: Reports: Hx Abdominal Surgery - ruptured ulcer, Hx Section - x3, Hx Herniorrhaphy, Other - History of hernia repair. Also history of perforated peptic ulcer. - Immunizations Hx Diphtheria, Pertussis, Tetanus Vaccination: Yes Review of Systems - Review of Systems Constitutional: No symptoms reported EENT: No symptoms reported Cardiovascular: No symptoms reported Respiratory: No symptoms reported Gastrointestinal: No symptoms reported Genitourinary: No symptoms reported Female Genitourinary: No symptoms reported Musculoskeletal: No symptoms reported Skin: See HPI, Rash Hematologic/Lymphatic: No symptoms reported Neurological/Psychological: No symptoms reported Physical Exam - Vital signs Vitals: Temp Pulse Resp BP Pulse Ox 98.5 F 95 18 115/78 97 09/16/18 13:14 09/16/18 13:14 09/16/18 13:14 09/16/18 13:14 09/16/18 13:14 Interpretation: Normal - Notes Notes: PHYSICAL EXAMINATION: GENERAL: Patient is a well-nourished well-developed 53-year-old female who is in no apparent distress on physical examination. Although patient does appear somewhat antsy because of her itching. HEAD: Atraumatic, normocephalic. EYES: Pupils equal round and reactive to light, extraocular movements intact, conjunctiva are normal. ENT: Nares patent, oropharynx clear without exudates. Moist mucous membranes. NECK: Normal range of motion, supple without lymphadenopathy LUNGS: Auscultation patient's lung craft show she has bilateral breath sounds breath sounds moderately decreased but no rhonchi rales or wheeze heard. HEART: Regular rate and rhythm without murmurs Female : deferred Musculoskeletal: Normal range of motion, no pitting or edema. No cyanosis. NEUROLOGICAL: Cranial nerves grossly intact. Normal speech, normal gait. Normal sensory, motor exams PSYCH: Normal mood, normal affect. SKIN: examination of patient's skin shows she has a macular rash that is systemic with the exception of the face is spared. No ureteric at this time but just a reddish macular rash. Some mild excoriations secondary to her fingernails on the upper arms and legs. But nothing that appears infectious. Course - Re-evaluation Re-evalutation: 09/16/18 15:27 I agree with patient that most likely the chemotherapy was given her this rash as we cannot conclude anything else. Silicone is a dermatitis secondary to the chemotherapy. At this point I am placing patient on a steroid taper along with the Zantac and the Vistaril. She will follow-up with her primary care outpatient if it continues to. She has had no indication of swelling of the tongue throat no angioedema. - Vital Signs Vital signs: Temp Pulse Resp BP Pulse Ox 98.5 F 95 18 115/78 97 09/16/18 13:14 09/16/18 13:14 09/16/18 13:14 09/16/18 13:14 09/16/18 13:14 Discharge - Discharge Clinical Impression: Allergic reaction caused by a drug Qualifiers: Encounter type: initial encounter Qualified Code(s): T78.40XA - Allergy, unspecified, initial encounter Condition: Stable Disposition: HOME, SELF-CARE Instructions: Acute Allergic Reaction to Drugs ([facility]) Additional Instructions: As discussed as we cannot find any other association I believe the chemotherapy may have caused this reaction. We will still treat you as we would any other allergic reaction we will place you on a steroid taper some hydroxyzine and some ranitidine. I explained the use of all 3 of these things to which should not interfere with your chemotherapy or your future radiation treatments although I would mention this to your oncologist. At this point with you having such pruritic response I do not see any other options. Should you have any concerns or problems should you start having shortness of breath or should you start noticing swelling of your tongue or lips return to ER for recheck. Prescriptions: Hydroxyzine HCl [Atarax 25 mg Tablet] 1 tab PO QID #25 tablet Methylprednisolone [Medrol Dosepack (4 mg/Tab) 21 Tab/Dosepak] 4 mg PO ASDIR PRN #21 tab.ds.pk PRN Reason: Ranitidine HCl 150 mg PO BID #30 tablet Referrals: MARISSA MELCHOR MD [Primary Care Provider] - Follow up as needed
[2018-09-16] MEDS ORDERED: DIPHENHYDRAMINE HCL 50 MG/ML VIAL IM ONE (15:21)
[2018-09-16 16:12] VITALS: BP 123/83
== END 2018-09-16 16:12 | disposition home or self-care (01) ==
LOC: ER 13:08
DX: T78.40XA Allergy, unspecified, initial encounter (principal); R21 Rash and other nonspecific skin eruption; C34.90 Malignant neoplasm of unspecified part of unspecified bronchus or lung; Z79.899 Other long term (current) drug therapy; Z87.891 Personal history of nicotine dependence; I10 Essential (primary) hypertension
CPT/HCPCS: 99282; 96372; J3490; J1200; J1100

== ENCOUNTER → 2018-10-09 | Outpatient (CLI) | payer MEDICAID ==
[2018-10-09 18:06] LABS: ABSOLUTE LYMPHOCYTES (AUTO) 0.8 10^3/uL (0.5-4.7); ABSOLUTE MONOCYTES (AUTO) 0.6 10^3/uL (0.1-1.4); ABSOLUTE NEUT (AUTO) 2.2 10^3/uL (1.7-8.2); BASOPHILS % (AUTO) 0.4 % (0-2); EOSINOPHILS % (AUTO) 0.5 % (0-6); HEMATOCRIT 33.8 % (36.0-47.0); HEMOGLOBIN 11.6 g/dL (12.0-15.5); LYMPHOCYTES % (AUTO) 22.3 % (13-45); MEAN CORPUSCULAR HEMOGLOBIN 30.6 pg (27.0-33.4); MEAN CORPUSCULAR HGB CONC 34.3 g/dL (32.0-36.0); MEAN CORPUSCULAR VOLUME 89 fl (80-97); MONOCYTES % (AUTO) 15.8 % (3-13); PLATELET COUNT 277 10^3/uL (150-450); RED BLOOD COUNT 3.78 10^6/uL (3.72-5.28); TOTAL CELLS COUNTED % (AUTO) 100 %; WHITE BLOOD COUNT 3.6 10^3/uL (4.0-10.5)
== END ==
LOC: OD 17:24
PROVIDERS: ATTEND Radiology Radiation Oncology
DX: C34.11 Malignant neoplasm of upper lobe, right bronchus or lung (principal); C77.1 Secondary and unspecified malignant neoplasm of intrathoracic lymph nodes
CPT/HCPCS: 36415; 85025

== ENCOUNTER 2018-10-14 13:06 | Emergency (ER) | payer MEDICAID ==
[2018-10-14 13:11] VITALS: BP 116/73
--- NOTE | 2018-10-14 14:44 | ER Document Report ---
ED ENT - General Chief Complaint: Sore Throat Stated Complaint: SORE THROAT Time Seen by Provider: 10/14/18 14:29 Mode of Arrival: Ambulatory Information source: Patient Notes: 53-year-old female presented to ED for complaint of sore throat cough congestion since yesterday. Patient states she takes radiation daily for her lung cancer. Her oncologist is at [place]. She has agreed to call both the radiology oncologist and the oncologist when she leaves the emergency room to let them know that she does have a cold and sore throat. Patient is afebrile lungs are clear speaking in full sentences walks with a even steady gait. TRAVEL OUTSIDE OF THE [place] IN LAST 30 DAYS: No - HPI Patient complains to provider of: Nose problem, Throat problem Onset: Yesterday Onset/Duration: Gradual Quality of pain: Achy Severity: Severe Pain Level: 5 Context: Recent Illness Location of pain: Nose, Sinus, Throat Associated symptoms: Congestion, Cough, Runny nose, Sinus pain, Sinus drainage, Sore throat Similar symptoms previously: Yes Recently seen / treated by doctor: No - Related Data Allergies/Adverse Reactions: No Known Allergies Allergy (Verified 10/14/18 13:07) Past Medical History - General Information source: Patient - Social History Smoking Status: Former Smoker Cigarette use (# per day): No Chew tobacco use (# tins/day): No Smoking Education Provided: No Frequency of alcohol use: Occasional Drug Abuse: None Lives with: Family Family History: Reviewed & Not Pertinent Patient has suicidal ideation: No Patient has homicidal ideation: No - Past Medical History Cardiac Medical History: Reports: Hx Hypertension Pulmonary Medical History: Reports: None EENT Medical History: Reports: None Neurological Medical History: Reports: None Endocrine Medical History: Reports: None Renal/ Medical History: Reports: None Malignancy Medical History: Reports: Hx Lung Cancer GI Medical History: Reports: Hx Ulcer Musculoskeletal Medical History: Reports None Skin Medical History: Reports None Psychiatric Medical History: Reports: None Traumatic Medical History: Reports: None Infectious Medical History: Reports: None Past Surgical History: Reports: Hx Abdominal Surgery - ruptured ulcer, hernia repair, Hx Section - x3, Hx Herniorrhaphy, Other - History of hernia repair. Also history of perforated peptic ulcer. - Immunizations Hx Diphtheria, Pertussis, Tetanus Vaccination: Yes Review of Systems - Review of Systems Constitutional: Recent illness EENT: Nose discharge, Sinus discharge, Throat pain Cardiovascular: No symptoms reported Respiratory: Cough Gastrointestinal: No symptoms reported Genitourinary: No symptoms reported Female Genitourinary: No symptoms reported Musculoskeletal: No symptoms reported Skin: No symptoms reported Hematologic/Lymphatic: No symptoms reported Neurological/Psychological: No symptoms reported Physical Exam - Vital signs Vitals: Temp Pulse Resp BP Pulse Ox 98.7 F 94 16 116/73 99 10/14/18 13:10 10/14/18 13:10 10/14/18 13:10 10/14/18 13:10 10/14/18 13:10 Interpretation: Normal - General General appearance: Appears well, Alert - HEENT Head: Normocephalic, Atraumatic Eyes: Normal Pupils: PERRL Ears: Normal External canal: Normal Tympanic membrane: Normal Sinus: Normal Nasal: Swelling, Clear rhinorrhea Mouth/Lips: Normal Mucous membranes: Normal Pharynx: Post nasal drainage Neck: Normal - Respiratory Respiratory status: No respiratory distress Chest status: Nontender Breath sounds: Normal Chest palpation: Normal - Cardiovascular Rhythm: Regular Heart sounds: Normal auscultation Murmur: No - Abdominal Inspection: Normal Distension: No distension Bowel sounds: Normal Tenderness: Nontender Organomegaly: No organomegaly - Back Back: Normal, Nontender - Extremities General upper extremity: Normal inspection, Nontender, Normal color, Normal ROM , Normal temperature General lower extremity: Normal inspection, Nontender, Normal color, Normal ROM , Normal temperature, Normal weight bearing. No: Kirill's sign - Neurological Neuro grossly intact: Yes Cognition: Normal Orientation: AAOx4 Veronica Coma Scale Eye Opening: Spontaneous [place] Coma Scale Verbal: Oriented Veronica Coma Scale Motor: Obeys Commands [place] Coma Scale Total: 15 Speech: Normal Motor strength normal: LUE, RUE, LLE, RLE Sensory: Normal - Psychological Associated symptoms: Normal affect, Normal mood - Skin Skin Temperature: Warm Skin Moisture: Dry Skin Color: Normal Course - Re-evaluation Re-evalutation: 10/14/18 21:13 Assessment consistent with an upper respiratory infection with a viral sore throat. After performing a Medical Screening Examination, I estimate there is LOW risk for ACUTE CORONARY SYNDROME, RESPIRATORY FAILURE, SEPSIS OR MENINGITIS , thus I consider the discharge disposition reasonable. I have reevaluated this patient multiple times and no significant life threatening changes are noted. The patient and I have discussed the diagnosis and risks, and we agree with discharging home with close follow-up. We also discussed returning to the Emergency Department immediately if new or worsening symptoms occur. We have discussed the symptoms which are most concerning (e.g., changing or worsening pain, trouble swallowing or breathing, neck stiffness, fever) that necessitate immediate return. - Vital Signs Vital signs: Temp Pulse Resp BP Pulse Ox 98.7 F 94 16 116/73 99 10/14/18 13:10 10/14/18 13:10 10/14/18 13:10 10/14/18 13:10 10/14/18 13:10 Discharge - Discharge Clinical Impression: Viral sore throat URI (upper respiratory infection) Qualifiers: URI type: unspecified URI Qualified Code(s): J06.9 - Acute upper respiratory infection, unspecified Condition: Stable Disposition: HOME, SELF-CARE Additional Instructions: SORE THROAT: Sore throats may be caused by viruses, bacteria, or fungi. Most are due to a virus, and must get better on their own. Bacterial sore throats, particularly those due to "strep," need treatment with antibiotics. If an antibiotic is prescribed, be sure to take the medication for a full 10 days. Failure to take the antibiotic can result in complications such as rheumatic fever. Sometimes, an injection of antibiotics is given instead of pills or liquid. This single "shot" is equal in effectiveness to the oral medication. To relieve symptoms, take acetaminophen for pain. Sip clear liquids frequently, or eat popsicles or ice chips. Anesthetic sprays or lozenges may help. Make sure the air in the room is not too dry. Avoid using decongestants or antihistamines. Call the doctor if there is no improvement in two days, or if you have difficulty breathing, increasing throat pain, high fever, rash, or frequent vomiting. UPPER RESPIRATORY ILLNESS: You have a viral infection of the respiratory passages -- a "cold." This common infection causes nasal congestion, drainage, and often sore throat and cough. It is highly contagious. The disease usually lasts about 10 to 14 days. There is no "cure" for the viral infection -- it must run its course. If there is a complication, such as bacterial infection in the nose, sinuses, middle ear, or bronchial tubes, antibiotics may be required. The antibiotics won't affect the virus. Drink plenty of fluids. A humidifier may help. An expectorant medication or decongestant may make you more comfortable. Use acetaminophen or ibuprofen for fever or aches. See the doctor if fever persists over two days, if there is any significant worsening of your symptoms, or if you simply fail to improve as expected. DECONGESTANT MEDICATION: A decongestant medicine has been suggested. Often this medicine is combined in the same tablet with an antihistamine or expectorant. This type of medicine is helpful in treating a bad cold or sinus condition, as well as in treatment of the nasal congestion of hay fever. It is not of much benefit for lung infections. Decongestant medicines are related to stimulants. They can cause an increase in blood pressure and heart rate. Persons with heart disease and high blood pressure should not take decongestants without discussing this with the physician. If you develop palpitations, chest pain, headache, or tremors, stop the medicine and consult your physician. COUGH-SUPPRESSANT & EXPECTORANT MEDICATION: You are to use a cough medication as needed for relief of symptoms. This medicine is a combination of an expectorant (to make the mucous thinner and more easily "coughed up") and a cough suppressant (to reduce the frequency of coughing). The cough-suppressant medicine is related to narcotics. You may experience mild nausea and sleepiness. Some patients who are very sensitive to narcotics may have stomach pain from this medicine. Taking the medicine with food reduces these side effects. Do not drive or work with machinery until you know how this medicine affects you. The expectorant should have no side effects. Iodine-containing expectorants (such as organidin) should not be taken by persons with active thyroid disease unless approved by your doctor. Call the doctor if you develop shortness of breath, hives, rash, itching, lightheadedness, or severe nausea and vomiting. USE OF ACETAMINOPHEN (Tylenol): Acetaminophen may be taken for pain relief or fever control. It's much safer than aspirin, offering a wider range of "safe" dosages. It is safe during . Some brand names are Tylenol, Panadol, Datril, Anacin 3, Tempra, and Liquiprin. Acetaminophen can be repeated every four hours. The following are maximum recommended dosages: >89 pounds or adults 650 mg to 900 mg Acetaminophen can be repeated every four hours. Maximum dose not to exceed 4000 mg a day. Please call your oncologist and your radiologist today and let them know that you have a cold. Please be sure when you go for your radiation treatment tonight that they know that you have a cold. FOLLOW-UP CARE: If you have been referred to a physician for follow-up care, call the physician s office for an appointment as you were instructed or within the next two days. If you experience worsening or a significant change in your symptoms, notify the physician immediately or return to the Emergency Department at any time for re-evaluation. Referrals: CARMINA PALOMINO, [ACTIVE STAFF] - Follow up as needed
== END 2018-10-14 14:45 | disposition home or self-care (01) ==
LOC: ER 13:06
DX: J06.9 Acute upper respiratory infection, unspecified (principal); J02.9 Acute pharyngitis, unspecified; B97.89 Other viral agents as the cause of diseases classified elsewhere; R05 Cough; R09.81 Nasal congestion; C34.90 Malignant neoplasm of unspecified part of unspecified bronchus or lung; R09.89 Other specified symptoms and signs involving the circulatory and respiratory systems; R51 Headache; Z87.891 Personal history of nicotine dependence; I10 Essential (primary) hypertension
CPT/HCPCS: 99282

== ENCOUNTER 2018-10-29 11:50 | Inpatient (IN) | payer MEDICAID ==
--- NOTE | 2018-10-29 12:22 | ER Document Report ---
ED Medical Screen (RME) - General Chief Complaint: Nausea/Vomiting Stated Complaint: NAUSEA, VOMITING Time Seen by Provider: 10/29/18 12:21 Notes: Patient is complaining of nausea and vomiting since yesterday. Says she is vomited about 3 or 4 times. Patient is currently being treated with chemo and radiation for lung cancer. Her most recent chemo was last Sunday and her most recent radiation was yesterday. She has small cell cancer of the right lung. Denies fever. Patient has had C-sections, umbilical hernia repair, perforated ulcer repair. TRAVEL OUTSIDE OF THE [place] IN LAST 30 DAYS: No - Related Data Allergies/Adverse Reactions: No Known Allergies Allergy (Verified 10/14/18 13:07) Past Medical History - Social History Frequency of alcohol use: None Drug Abuse: Cocaine - Past Medical History Cardiac Medical History: Reports: Hx Hypertension Denies: Hx Coronary Artery Disease Endocrine Medical History: Denies: Hx Diabetes Mellitus Type 1, Hx Diabetes Mellitus Type 2 Renal/ Medical History: Denies: Hx Peritoneal Dialysis Malignancy Medical History: Reports: Hx Lung Cancer GI Medical History: Reports: Hx Ulcer Past Surgical History: Reports: Hx Abdominal Surgery - ruptured ulcer, hernia repair, Hx Section - x3, Hx Herniorrhaphy, Other - History of hernia repair. Also history of perforated peptic ulcer. - Immunizations Hx Diphtheria, Pertussis, Tetanus Vaccination: Yes Physical Exam - Vital signs Vitals: Temp Pulse Resp BP Pulse Ox 99.7 F 126 H 16 128/80 H 99 10/29/18 11:55 10/29/18 11:55 10/29/18 11:55 10/29/18 11:55 10/29/18 11:55 Course - Vital Signs Vital signs: Temp Pulse Resp BP Pulse Ox 99.7 F 126 H 16 128/80 H 99 10/29/18 11:55 10/29/18 11:55 10/29/18 11:55 10/29/18 11:55 10/29/18 11:55 Doctor's Discharge - Discharge Referrals: KARL WIN MD [Primary Care Provider] - Follow up as needed
[2018-10-29] MEDS ORDERED: ONDANSETRON 4 MG TAB.RAPDIS PO ONE (12:23)
[2018-10-29] MEDS ORDERED: NORMAL SALINE 1000 ML 1,000 ML IV ONE ×2 (12:27→14:31)
[2018-10-29] MEDS ORDERED: ONDANSETRON HCL INJ/PF 4 MG/2 ML SDV IV ONE (12:45)
[2018-10-29 12:54] LABS: HEMATOCRIT 41.2 % (36.0-47.0); HEMOGLOBIN 14.1 g/dL (12.0-15.5); MEAN CORPUSCULAR HEMOGLOBIN 31.1 pg (27.0-33.4); MEAN CORPUSCULAR HGB CONC 34.3 g/dL (32.0-36.0); MEAN CORPUSCULAR VOLUME 91 fl (80-97); PLATELET COUNT 115 10^3/uL (150-450); RED BLOOD COUNT 4.54 10^6/uL (3.72-5.28); RED CELL DISTRIBUTION WIDTH 19.9 % (11.5-14.0)
[2018-10-29 13:06] LABS: ALANINE AMINOTRANSFERASE 33 U/L (9-52); ALBUMIN 5.4 g/dL (3.5-5.0); ALKALINE PHOSPHATASE 90 U/L (38-126); ANION GAP 13 (5-19); ASPARTATE AMINO TRANSFERASE 54 U/L (14-36); BILIRUBIN,DIRECT 0.3 mg/dL (0.0-0.4); BILIRUBIN,TOTAL 0.6 mg/dL (0.2-1.3); BLOOD UREA NITROGEN 22 mg/dL (7-20); CALCIUM 10.7 mg/dL (8.4-10.2); CARBON DIOXIDE 29 mmol/L (22-30); CHLORIDE 99 mmol/L (98-107); GLUCOSE 118 mg/dL (75-110); LIPASE 196.3 U/L (23-300); POTASSIUM 4.5 mmol/L (3.6-5.0); TOTAL PROTEIN 9.1 g/dL (6.3-8.2)
[2018-10-29] MEDS ORDERED: PROMETHAZINE HCL INJ 25 MG/1 ML VIAL IV ONE (13:23)
[2018-10-29 13:32] LABS: ABSOLUTE LYMPHOCYTES# (MANUAL) 0.2 10^3/uL (0.5-4.7); ABSOLUTE MONOCYTES # (MANUAL) 0.2 10^3/uL (0.1-1.4); ABSOLUTE NEUTROPHILS# (MANUAL) 1.6 10^3/uL (1.7-8.2); BASOPHILS % (MANUAL) 0 % (0-2); EOSINOPHILS % (MANUAL) 4 % (0-6); LYMPHOCYTES % (MANUAL) 8 % (13-45); MONOCYTES % (MANUAL) 8 % (3-13); SEGMENTED NEUTROPHILS % (MAN) 80 % (42-78); TOTAL CELLS COUNTED 50
[2018-10-29 13:33] LABS: ANISOCYTOSIS 2+; OVALOCYTES 1+; PLATELET COMMENT DECREASED; POIKILOCYTOSIS 1+; SCHISTOCYTES SLIGHT
--- NOTE | 2018-10-29 13:34 | ER Document Report ---
ED General - General Chief Complaint: Nausea/Vomiting Stated Complaint: NAUSEA, VOMITING Time Seen by Provider: 10/29/18 12:21 Notes: 53-year-old lady with lung cancer on chemoradiation presents with nausea and vomiting. She says "I am sick" has been for 2 days. [facility] but they did not have it in stock. She has upper abdominal pain diffusely and is a quite poor historian in describing its quality . She has a history of nausea vomiting as well. Her last chemo was on , not aware that she received Neulasta, and had radiation yesterday. TRAVEL OUTSIDE OF THE [place] IN LAST 30 DAYS: No - Related Data Allergies/Adverse Reactions: No Known Allergies Allergy (Verified 10/14/18 13:07) Past Medical History - Social History Smoking Status: Current Every Day Smoker Frequency of alcohol use: None Drug Abuse: Cocaine Family History: Reviewed & Not Pertinent Patient has suicidal ideation: No Patient has homicidal ideation: No - Past Medical History Cardiac Medical History: Reports: Hx Hypertension Denies: Hx Coronary Artery Disease Endocrine Medical History: Denies: Hx Diabetes Mellitus Type 1, Hx Diabetes Mellitus Type 2 Renal/ Medical History: Denies: Hx Peritoneal Dialysis Malignancy Medical History: Reports: Hx Lung Cancer GI Medical History: Reports: Hx Ulcer Past Surgical History: Reports: Hx Abdominal Surgery - ruptured ulcer, hernia repair, Hx Section - x3, Hx Herniorrhaphy, Other - History of hernia repair. Also history of perforated peptic ulcer. - Immunizations Hx Diphtheria, Pertussis, Tetanus Vaccination: Yes Review of Systems - Review of Systems Notes: REVIEW OF SYSTEMS GEN: Denies fever, chills, weight loss ENT: Denies sore throat, nasal discharge, ear pain EYES: Denies blurry vision, eye pain, discharge CV: Denies chest pain, palpitations, edema RESP: Denies cough, shortness of breath, wheezing GI: Dominant pain nausea and vomiting MSK: Denies joint pain/swelling, edema, SKIN: Denies rash, skin lesions LYMPH: Denies swollen glands/lymph nodes NEURO: Denies headache, focal weakness or numbness, dizziness PSYCH: Denies depression, suicidal or homicidal ideation PHYSICAL EXAMINATION General: No acute distress, well-nourished Head: Atraumatic, normocephalic ENT: Mouth normal, oropharynx moist, no exudates or tonsillar enlargement Eyes: Conjunctiva normal, pupils equal, lids normal Neck: No JVD, supple, no guarding CVS: Normal rate, regular rhythm, no murmurs Resp: No resp distress, equal and normal breath sounds bilaterally GI: Nondistended, soft, diffuse upper abdominal tenderness to palpation, no rebound or guarding Ext: No deformities, no edema, normal range of motion in upper and lower ext Back: No CVA or midline TTP Skin: No rash, warm Lymphatic: No lymphadeopathy noted Neuro: Awake, alert. Face symmetric. GCS 15. Physical Exam - Vital signs Vitals: Temp Pulse Resp BP Pulse Ox 99.7 F 126 H 16 128/80 H 99 10/29/18 11:55 10/29/18 11:55 10/29/18 11:55 10/29/18 11:55 10/29/18 11:55 Course - Re-evaluation Re-evalutation: 10/29/18 14:45 Reassessed after Haldol. Still vomiting. Tachycardia to 110. Labs show acute kidney injury likely from dehydration. Ordered second liter of fluid. Ordered CT just to rule out severe cause abdominal pain although I think this is unlikely. Discussed with Dr. Lino hospitalist for admit. - Vital Signs Vital signs: Temp Pulse Resp BP Pulse Ox 99.7 F 126 H 16 128/80 H 99 10/29/18 11:55 10/29/18 11:55 10/29/18 11:55 10/29/18 11:55 10/29/18 11:55 10/29/18 14:30 Patient presents with nausea vomiting after chemo. Tenderness is mild and upper. She was given 2 rounds of nausea medicine and still felt nauseous. I gave her Haldol. Her labs show leukopenia but not neutropenia, will and she is not febrile. He remains slightly tachycardic but is improved on reassessment. Given her counts are good and her tachycardia is better, her abdominal pain is resolved I think that she can be discharged safely with Phenergan suppositories and does not need further imaging at this time. I have discussed with the patient there likely diagnosis, aftercare plan, follow-up plans and my usual and customary return precautions. They verbalized understanding of this. - Laboratory Result Diagrams: 10/29/18 12:28 10/29/18 12:28 Laboratory results interpreted by me: 10/29/18 10/29/18 12:28 12:28 WBC 2.0 L RDW 19.9 H Plt Count 115 L Seg Neuts % (Manual) 80 H Lymphocytes % (Manual) 8 L Abs Neuts (Manual) 1.6 L Abs Lymphs (Manual) 0.2 L BUN 22 H Creatinine 1.28 H Est GFR ( Amer) 52 L Est GFR (Non-Af Amer) 43 L Glucose 118 H Calcium 10.7 H AST 54 H Total Protein 9.1 H Albumin 5.4 H Discharge - Discharge Clinical Impression: Nausea & vomiting Qualifiers: Vomiting type: unspecified Vomiting Intractability: non-intractable Qualified Code(s): R11.2 - Nausea with vomiting, unspecified Condition: Good Disposition: ADMITTED OBSERVATION Admitting Provider: Hospitalist Unit Admitted: Medical Floor Instructions: Vomiting ([facility]) Prescriptions: Promethazine HCl [Phenergan 25 mg Supp.rect] 1 supp OR Q6H #12 supp.rect Referrals: KARL WIN MD [Primary Care Provider] - Follow up as needed
[2018-10-29] MEDS ORDERED: HALOPERIDOL LACTATE INJ 5 MG/1 ML VIAL IV ONE (13:59)
--- NOTE | 2018-10-29 15:22 | RADIOLOGY REPORT (SQ) ---
EXAM DESCRIPTION: CT ABD/PELVIS WITH IV ONLY COMPLETED DATE/TIME: 10/29/2018 3:10 pm REASON FOR STUDY: abd pain vomiting COMPARISON: 09/02/2018. TECHNIQUE: CT scan of the abdomen and pelvis performed using helical scanning technique with dynamic intravenous contrast injection. No oral contrast. Images reviewed with lung, soft tissue, and bone windows. Reconstructed coronal and sagittal MPR images reviewed. Delayed images for evaluation of the urinary system also acquired. All images stored on PACS. All CT scanners at this facility use dose modulation, iterative reconstruction, and/or weight based d osing when appropriate to reduce radiation dose to as low as reasonably achievable (ALARA). [facility]: Dose Right [facility]: CareDose [facility]: Dose Right [facility]: Teradose 4D [facility]: Getonic CONTRAST TYPE AND DOSE: contrast/concentration: Isovue 350.00 mg/ml; Total Contrast Delivered: 50.0 ml; Total Saline Delivered: 42.1 ml RENAL FUNCTION: GFR 43. RADIATION DOSE: CT Rad equipment meets quality standard of care and radiation dose reduction techniq ues were employed. CTDIvol: 4.8 - 5.0 mGy. DLP: 459 mGy-cm.. LIMITATIONS: None. FINDINGS: LOWER CHEST: No significant findings. No nodules or infiltrates. LIVER: Normal size. No masses. No dilated ducts. SPLEEN: Normal size. No focal lesions. PANCREAS: No masses. No significant calcifications. No adjacent inflammation or peripancreatic fluid collections. Pancreatic duct not dilated. GALLBLADDER: No identified stones by CT criteria. No inflammatory changes to suggest cholecystitis. ADRENAL GLANDS: No significant masses or asymmetry. RIGHT KIDNEY AND URETER: No solid masses. No significant calcifications. No hydronephrosis or hyd roureter. LEFT KIDNEY AND URETER: No solid masses. No significant calcifications. No hydronephrosis or hydr oureter. AORTA AND VESSELS: No aneurysm. No dissection. Renal arteries, SMA, celiac without stenosis. RETROPERITONEUM: No retroperitoneal adenopathy, hemorrhage or masses. BOWEL AND PERITONEAL CAVITY: No masses or inflammatory changes. No free fluid or peritoneal masses. APPENDIX: Not visualized. PELVIS: No mass. No free fluid. Normal bladder. ABDOMINAL WALL: No masses. No hernias. BONES: No significant or acute findings. OTHER: No other significant finding. IMPRESSION: NO SIGNIFICANT OR ACUTE FINDING IN THE ABDOMEN OR PELVIS ON CT SCAN WITH IV CONTRAST. TECHNICAL DOCUMENTATION: JOB ID: [id number] Quality ID # [id number]: Final reports with documentation of one or more dose reduction techniques (e.g., Au tomated exposure control, adjustment of the mA and/or kV according to patient size, use of iterative reconstruction technique) 2010 [employer]- All Rights Reserved Reading location - IP/workstation name: [email or web address]
--- NOTE | 2018-10-29 16:04 | PDOC H&P ---
History of Present Illness Admission Date/PCP: 10/29/18 14:51 KARL WIN MD History of Present Illness: ALBAN BALLESTEROS is a 53 year old female who is on chemotherapy for lung cancer who has had persistent nausea and vomiting for 2-3 days. She has not been able to eat or take any of her other medications. She is not been able to hold any fluids down. Nothing that she takes at home room is really help to make it better. The emergency department she got a dose of Zofran, Reglan, and then finally Haldol before she finally got some relief, and she still vomited once with the Haldol. Her creatinine was elevated a little bit above baseline as well. She has been admitted for IV fluids and antiemetics. Past Medical History Cardiac Medical History: Reports: Hypertension Denies: Coronary Artery Disease Endocrine Medical History: Denies: Diabetes Mellitus Type 1, Diabetes Mellitus Type 2 Malignancy Medical History: Reports: Lung Cancer Past Surgical History Past Surgical History: Reports: Section - x3, Herniorrhaphy, Other - History of hernia repair. Also history of perforated peptic ulcer. Social History Smoking Status: Current Every Day Smoker Frequency of Alcohol Use: Social Hx Recreational Drug Use: Yes Drugs: Cocaine, Marijuana Family History Family History: Reviewed & Not Pertinent Parental Family History Reviewed: Yes - Noncontributory Children Family History Reviewed: Yes - Noncontributory Sibling(s) Family History Reviewed.: Yes - Noncontributory Medication/Allergy Allergies/Adverse Reactions: No Known Allergies Allergy (Verified 10/14/18 13:07) Review of Systems All systems: reviewed and no additional remarkable complaints except as stated - 10 point review of systems was conducted with the patient and was negative except as noted above Physical Exam Vital Signs: Temp Pulse Resp BP Pulse Ox 99.7 F 126 H 16 128/80 H 99 10/29/18 11:55 10/29/18 11:55 10/29/18 11:55 10/29/18 11:55 10/29/18 11:55 Intake & Output 10/28/18 10/29/18 10/30/18 06:59 06:59 06:59 Intake Total 1000 Balance 1000 Weight 44.5 kg General appearance: PRESENT: cooperative, disheveled, mild distress Head exam: PRESENT: atraumatic, normocephalic Eye exam: PRESENT: EOMI, PERRLA. ABSENT: conjunctival injection, nystagmus, scleral icterus Ear exam: PRESENT: normal external ear exam Mouth exam: PRESENT: dry mucosa, neck supple Throat exam: ABSENT: post pharyngeal erythema Neck exam: PRESENT: full ROM. ABSENT: carotid bruit, JVD, lymphadenopathy, meningismus, tenderness, thyromegaly Respiratory exam: PRESENT: clear to auscultation frederick, symmetrical, unlabored. ABSENT: accessory muscle use, crackles, rhonchi, tachypnea, wheezes Cardiovascular exam: PRESENT: tachycardia Vascular exam: PRESENT: normal capillary refill GI/Abdominal exam: PRESENT: normal bowel sounds, soft. ABSENT: distended, guarding, rebound, tenderness Extremities exam: ABSENT: clubbing, pedal edema Musculoskeletal exam: PRESENT: normal inspection. ABSENT: deformity Neurological exam: PRESENT: awake - Drowsy but arousable, appears ill, oriented to person, oriented to place, oriented to situation. ABSENT: motor sensory deficit - She moved she moves all of her extremities independently and displayed no facial asymmetry and spoke with fluent speech, she did not want to cooperate for cranial nerve exam Psychiatric exam: PRESENT: flat affect Skin exam: PRESENT: dry, warm Results Laboratory Results: 10/29/18 12:28 10/29/18 12:28 10/29/18 10/29/18 12:28 12:28 WBC 2.0 L RBC 4.54 Hgb 14.1 Hct 41.2 MCV 91 MCH 31.1 MCHC 34.3 RDW 19.9 H Plt Count 115 L Seg Neutrophils % Not Reportable Lymphocytes % Not Reportable Monocytes % Not Reportable Eosinophils % Not Reportable Basophils % Not Reportable Absolute Neutrophils Not Reportable Absolute Lymphocytes Not Reportable Absolute Monocytes Not Reportable Absolute Eosinophils Not Reportable Absolute Basophils Not Reportable Sodium 141.0 Potassium 4.5 Chloride 99 Carbon Dioxide 29 Anion Gap 13 BUN 22 H Creatinine 1.28 H Est GFR ( Amer) 52 L Est GFR (Non-Af Amer) 43 L Glucose 118 H Calcium 10.7 H Total Bilirubin 0.6 AST 54 H ALT 33 Alkaline Phosphatase 90 Total Protein 9.1 H Albumin 5.4 H Lipase 196.3 Impressions: Abdomen/Pelvis CT 10/29/18 14:40 IMPRESSION: NO SIGNIFICANT OR ACUTE FINDING IN THE ABDOMEN OR PELVIS ON CT SCAN WITH IV CONTRAST. Assessment & Plan - Diagnosis (1) Chemotherapy induced nausea and vomiting Is this a current diagnosis for this admission?: Yes Plan: Going to give her some scheduled doses of Decadron, along with as needed doses of Zofran and Reglan. If this is insufficient we will try Compazine or Zyprexa. (2) Acute kidney injury Is this a current diagnosis for this admission?: Yes Plan: We will give her some IV fluids and monitor her creatinine, urine output, and electrolytes. - Time Time Spent: 50 to 70 Minutes - Inpatient Certification Based on my medical assessment, after consideration of the patient's comorbidities, presenting symptoms, or acuity I expect that the services needed warrant INPATIENT care.: Yes I certify that my determination is in accordance with my understanding of Medicare's requirements for reasonable and necessary INPATIENT services [42 CFR 412.3e].: Yes Medical Necessity: Need Close Monitoring Due to Risk of Patient Decompensation, Need For IV Fluids, Need For Continuous Telemetry Monitoring
[2018-10-29] MEDS: DEXAMETHASONE SOD PHOSPHATE INJ 4 MG/1 ML VIAL IV SCH ×2 (17:34→21:51)
[2018-10-29] MEDS: NORMAL SALINE 1000 ML 1,000 ML IV PRN (17:35)
[2018-10-29 19:05] LABS: APPEARANCE,URINE CLEAR; BILIRUBIN,URINE NEGATIVE (NEGATIVE); COLOR,URINE STRAW; GLUCOSE, URINE NEGATIVE (NEGATIVE); KETONES,URINE TRACE mg/dL (NEGATIVE); LEUKOCYTE ESTERASE,URINE SMALL (NEGATIVE); NITRITE,URINE NEGATIVE (NEGATIVE); PROTEIN,URINE NEGATIVE (NEGATIVE); URINE SPECIFIC GRAVITY 1.024; UROBILINOGEN,URINE NEGATIVE mg/dL (<2.0)
[2018-10-29] MEDS: HEPARIN SOD (PORCINE) 5,000 UNIT/ML 1 ML SYRINGE SUBCUT SCH (21:53)
[2018-10-30] MEDS: ONDANSETRON HCL INJ/PF 4 MG/2 ML SDV IV PRN ×2 (02:17→10:10)
[2018-10-30] MEDS: METOCLOPRAMIDE HCL INJ/PF 10 MG/2 ML SDV IV PRN ×2 (04:36→10:10)
[2018-10-30] MEDS: HEPARIN SOD (PORCINE) 5,000 UNIT/ML 1 ML SYRINGE SUBCUT SCH ×3 (05:28→21:49)
[2018-10-30] MEDS: DEXAMETHASONE SOD PHOSPHATE INJ 4 MG/1 ML VIAL IV SCH (05:33)
[2018-10-30] MEDS: NORMAL SALINE 1000 ML 1,000 ML IV PRN ×3 (05:35→23:33)
[2018-10-30 07:20] LABS: ANION GAP 13 (5-19); BLOOD UREA NITROGEN 18 mg/dL (7-20); CALCIUM 9.5 mg/dL (8.4-10.2); CARBON DIOXIDE 29 mmol/L (22-30); CHLORIDE 99 mmol/L (98-107); GLUCOSE 103 mg/dL (75-110); POTASSIUM 3.9 mmol/L (3.6-5.0); SODIUM 140.5 mmol/L (137-145)
--- NOTE | 2018-10-30 15:07 | PDOC PROGRESS REPORT ---
Subjective Progress Note for:: 10/30/18 Subjective:: 10/30/2018 no acute events in the last 24 hours. Patient is continued to have nausea. We tried Zofran we try Reglan is not helping be started on Phenergan today. She is going for radiation therapy this evening. pt says she Is feeling little bit better. Reason For Visit: CHEMOTHERAPY-INDUCED NAUSEA AND VOMITING Physical Exam Vital Signs: Temp Pulse Resp BP Pulse Ox 99.2 F 120 H 14 153/82 H 97 10/30/18 11:30 10/30/18 13:45 10/30/18 11:30 10/30/18 11:30 10/30/18 11:30 Intake & Output 10/29/18 10/30/18 10/31/18 06:59 06:59 06:59 Intake Total 3125 1000 Output Total 200 Balance 2925 1000 Weight 45 kg General appearance: PRESENT: no acute distress Head exam: PRESENT: atraumatic Eye exam: PRESENT: PERRLA Mouth exam: PRESENT: dry mucosa Teeth exam: PRESENT: poor dentation Neck exam: ABSENT: carotid bruit, JVD, lymphadenopathy, thyromegaly Respiratory exam: PRESENT: decreased breath sounds Cardiovascular exam: PRESENT: RRR. ABSENT: diastolic murmur, rubs, systolic murmur GI/Abdominal exam: PRESENT: normal bowel sounds, soft. ABSENT: distended, guarding, mass, organolmegaly, rebound, tenderness Neurological exam: PRESENT: alert, awake, oriented to person, oriented to place, oriented to time, oriented to situation, CN II-XII grossly intact. ABSENT: motor sensory deficit Psychiatric exam: PRESENT: appropriate affect, normal mood. ABSENT: homicidal ideation, suicidal ideation Results Laboratory Results: 10/29/18 12:28 10/30/18 06:47 10/29/18 10/30/18 10/30/18 18:15 05:11 06:47 Sodium Cancelled 140.5 Potassium Cancelled 3.9 Chloride Cancelled 99 Carbon Dioxide Cancelled 29 Anion Gap Cancelled 13 BUN Cancelled 18 Creatinine Cancelled 0.96 Est GFR ( Amer) Cancelled > 60 Est GFR (Non-Af Amer) Cancelled > 60 Glucose Cancelled 103 Calcium Cancelled 9.5 Urine Color STRAW Urine Appearance CLEAR Urine pH 6.0 Ur Specific Lyons 1.024 Urine Protein NEGATIVE Urine Glucose (UA) NEGATIVE Urine Ketones TRACE H Urine Blood NEGATIVE Urine Nitrite NEGATIVE Ur Leukocyte Esterase SMALL H Urine WBC (Auto) 4 Urine RBC (Auto) 1 Impressions: Abdomen/Pelvis CT 10/29/18 14:40 IMPRESSION: NO SIGNIFICANT OR ACUTE FINDING IN THE ABDOMEN OR PELVIS ON CT SCAN WITH IV CONTRAST. Assessment & Plan - Diagnosis (1) Chemotherapy induced nausea and vomiting Is this a current diagnosis for this admission?: Yes Plan: Going to give her some scheduled doses of Decadron, along with as needed doses of Zofran and Reglan. If this is insufficient we will try Compazine or Zyprexa. 10/30/2018-she is going for radiation therapy this evening. Zofran and Reglan is not helping for nausea and vomitings be started on Phenergan today. Plan is to continue the present management. (2) Acute kidney injury Is this a current diagnosis for this admission?: Yes Plan: 10/30/2018-admission creatinine is 1.26 and it came down to 0.96.. DIOGENES resolving. - Time Time Spent with patient: 15-24 minutes Medications reviewed and adjusted accordingly: Yes Anticipated discharge: Home
[2018-10-30 16:14] LABS: PATH REVIEW PATHOLOGIST REVIEWED
[2018-10-30] MEDS: PROMETHAZINE HCL INJ 25 MG/1 ML VIAL IV PRN ×2 (17:11→23:32)
[2018-10-31 05:19] LABS: ANION GAP 10 (5-19); BLOOD UREA NITROGEN 15 mg/dL (7-20); CALCIUM 9.4 mg/dL (8.4-10.2); CARBON DIOXIDE 27 mmol/L (22-30); CHLORIDE 100 mmol/L (98-107); GLUCOSE 91 mg/dL (75-110); POTASSIUM 3.9 mmol/L (3.6-5.0); SODIUM 136.9 mmol/L (137-145)
[2018-10-31] MEDS: HEPARIN SOD (PORCINE) 5,000 UNIT/ML 1 ML SYRINGE SUBCUT SCH ×3 (06:15→22:01)
[2018-10-31] MEDS: PROMETHAZINE HCL INJ 25 MG/1 ML VIAL IV PRN (06:17)
[2018-10-31] MEDS: NORMAL SALINE 1000 ML 1,000 ML IV PRN ×2 (07:59→18:40)
[2018-10-31] MEDS ORDERED: NICOTINE 14 MG/24 HR PATCH.TD24 TD PRN (09:49)
[2018-10-31] MEDS: MORPHINE SULFATE 10 MG/ML INJ IV PRN (11:17)
--- NOTE | 2018-10-31 11:23 | Physician Advisory Note ---
Physician Advisor ProgressNote .: Pursuant to the plan for [facility], I have reviewed the medical record for this patient. Physician Advisor Statement: Pt w/baseline Cr of 0.6s-0.8s, in w/mild DIOGENES, N/V due to chemotx, neutropenia due to chemotx, tachycardia persistent. CK
[2018-10-31] MEDS ORDERED: METOPROLOL TARTRATE PF/INJ 5 MG/5 ML SDV IV ONE (15:30)
--- NOTE | 2018-10-31 18:54 | PDOC PROGRESS REPORT ---
Subjective Progress Note for:: 10/31/18 Subjective:: This is a 53 years old black female patient with lung CA and who has been on chemo and radiation. Patient admitted for intractable nausea and vomiting which is chemo induced. Patient also found to have acute kidney injury due to dehydration. Currently her vomiting and nausea has been subsiding. Today she got her last radiation. Her radiation oncologist recommended Port-A-Cath placement. Reason For Visit: CHEMOTHERAPY-INDUCED NAUSEA AND VOMITING Physical Exam Vital Signs: Temp Pulse Resp BP Pulse Ox 99.0 F 119 H 18 151/95 H 98 10/31/18 11:08 10/31/18 14:00 10/31/18 11:08 10/31/18 11:08 10/31/18 11:08 Intake & Output 10/30/18 10/31/18 11/01/18 06:59 06:59 06:59 Intake Total 3125 2839 2384 Output Total 200 Balance 2925 2839 2384 Weight 45 kg 47.1 kg General appearance: PRESENT: no acute distress Head exam: PRESENT: atraumatic Eye exam: PRESENT: conjunctiva pink Respiratory exam: PRESENT: crackles, rales Cardiovascular exam: PRESENT: RRR. ABSENT: diastolic murmur, rubs, systolic murmur GI/Abdominal exam: PRESENT: normal bowel sounds, soft. ABSENT: distended, gu arding, mass, organolmegaly, rebound, tenderness Neurological exam: PRESENT: alert, awake Results Laboratory Results: 10/29/18 12:28 10/31/18 04:03 10/31/18 04:03 Sodium 136.9 L Potassium 3.9 Chloride 100 Carbon Dioxide 27 Anion Gap 10 BUN 15 Creatinine 0.81 Est GFR ( Amer) > 60 Est GFR (Non-Af Amer) > 60 Glucose 91 Calcium 9.4 Impressions: Abdomen/Pelvis CT 10/29/18 14:40 IMPRESSION: NO SIGNIFICANT OR ACUTE FINDING IN THE ABDOMEN OR PELVIS ON CT SCAN WITH IV CONTRAST. Assessment & Plan - Diagnosis (1) Hypertensive urgency Is this a current diagnosis for this admission?: Yes Plan: Has been managed accordingly (2) Acute kidney injury Is this a current diagnosis for this admission?: Yes Plan: Has resolved (3) Chemotherapy induced nausea and vomiting Is this a current diagnosis for this admission?: Yes Plan: Improving (4) Current everyday smoker Is this a current diagnosis for this admission?: Yes Plan: Patient counseled and encouraged to quit smoking
[2018-11-01] MEDS: MORPHINE SULFATE 10 MG/ML INJ IV PRN ×2 (00:10→13:23)
[2018-11-01] MEDS: HEPARIN SOD (PORCINE) 5,000 UNIT/ML 1 ML SYRINGE SUBCUT SCH ×3 (05:17→21:20)
[2018-11-01] MEDS: NORMAL SALINE 1000 ML 1,000 ML IV PRN ×3 (05:20→23:18)
[2018-11-01 07:10] LABS: HEMATOCRIT 35.5 % (36.0-47.0); HEMOGLOBIN 12.2 g/dL (12.0-15.5); MEAN CORPUSCULAR HEMOGLOBIN 31.2 pg (27.0-33.4); MEAN CORPUSCULAR HGB CONC 34.4 g/dL (32.0-36.0); MEAN CORPUSCULAR VOLUME 91 fl (80-97); PLATELET COUNT 103 10^3/uL (150-450); RED BLOOD COUNT 3.92 10^6/uL (3.72-5.28); RED CELL DISTRIBUTION WIDTH 18.6 % (11.5-14.0)
[2018-11-01 07:28] LABS: ANION GAP 8 (5-19); BLOOD UREA NITROGEN 11 mg/dL (7-20); CALCIUM 9.3 mg/dL (8.4-10.2); CARBON DIOXIDE 29 mmol/L (22-30); CHLORIDE 101 mmol/L (98-107); GLUCOSE 89 mg/dL (75-110); POTASSIUM 3.6 mmol/L (3.6-5.0); SODIUM 137.5 mmol/L (137-145)
[2018-11-01 08:32] LABS: WHITE BLOOD COUNT 1.2 10^3/uL (4.0-10.5)
[2018-11-01 08:38] LABS: ABSOLUTE LYMPHOCYTES# (MANUAL) 0.2 10^3/uL (0.5-4.7); ABSOLUTE MONOCYTES # (MANUAL) 0.3 10^3/uL (0.1-1.4); ABSOLUTE NEUTROPHILS# (MANUAL) 0.7 10^3/uL (1.7-8.2); BASOPHILS % (MANUAL) 0 % (0-2); EOSINOPHILS % (MANUAL) 0 % (0-6); LYMPHOCYTES % (MANUAL) 19 % (13-45); MONOCYTES % (MANUAL) 21 % (3-13); OVALOCYTES 2+; PLATELET COMMENT DECREASED; POIKILOCYTOSIS 2+; POLYCHROMASIA SLIGHT; SCHISTOCYTES SLIGHT; SEGMENTED NEUTROPHILS % (MAN) 59 % (42-78); TOTAL CELLS COUNTED 100
--- NOTE | 2018-11-01 16:07 | PDOC PROGRESS REPORT ---
Subjective Subjective:: I seen and examined the patient while she is resting in bed. She is awake alert oriented. She is starting pain or distress. The only concern is that her WBC count dropped from 2-1.2. Most probably it is due to chemoradiation. Will repeat the CBC for tomorrow. Reason For Visit: CHEMOTHERAPY-INDUCED NAUSEA AND VOMITING Physical Exam Vital Signs: Temp Pulse Resp BP Pulse Ox 98.5 F 100 18 130/83 H 99 11/01/18 08:16 11/01/18 14:00 11/01/18 08:16 11/01/18 08:16 11/01/18 08:16 Intake & Output 10/31/18 11/01/18 11/02/18 06:59 06:59 06:59 Intake Total 2839 3728 1000 Balance 2839 3728 1000 Weight 47.1 kg 47.5 kg General appearance: PRESENT: no acute distress Head exam: PRESENT: atraumatic Eye exam: PRESENT: conjunctiva pink Mouth exam: PRESENT: moist Neck exam: ABSENT: carotid bruit, JVD, lymphadenopathy, thyromegaly Respiratory exam: PRESENT: crackles Cardiovascular exam: PRESENT: RRR. ABSENT: diastolic murmur, rubs, systolic murmur GI/Abdominal exam: PRESENT: normal bowel sounds, soft. ABSENT: distended, guarding, mass, organolmegaly, rebound, tenderness Neurological exam: PRESENT: alert, awake, oriented to time, oriented to situation Results Laboratory Results: 11/01/18 06:45 11/01/18 06:45 11/01/18 11/01/18 06:45 06:45 WBC 1.2 L* RBC 3.92 Hgb 12.2 Hct 35.5 L MCV 91 MCH 31.2 MCHC 34.4 RDW 18.6 H Plt Count 103 L Seg Neutrophils % Not Reportable Lymphocytes % Not Reportable Monocytes % Not Reportable Eosinophils % Not Reportable Basophils % Not Reportable Absolute Neutrophils Not Reportable Absolute Lymphocytes Not Reportable Absolute Monocytes Not Reportable Absolute Eosinophils Not Reportable Absolute Basophils Not Reportable Sodium 137.5 Potassium 3.6 Chloride 101 Carbon Dioxide 29 Anion Gap 8 BUN 11 Creatinine 0.82 Est GFR ( Amer) > 60 Est GFR (Non-Af Amer) > 60 Glucose 89 Calcium 9.3 Impressions: Abdomen/Pelvis CT 10/29/18 14:40 IMPRESSION: NO SIGNIFICANT OR ACUTE FINDING IN THE ABDOMEN OR PELVIS ON CT SCAN WITH IV CONTRAST. Assessment & Plan - Diagnosis (1) Hypertensive urgency Is this a current diagnosis for this admission?: Yes Plan: Has been managed accordingly (2) Acute kidney injury Is this a current diagnosis for this admission?: Yes Plan: Has resolved (3) Chemotherapy induced nausea and vomiting Is this a current diagnosis for this admission?: Yes Plan: Improving (4) Current everyday smoker Is this a current diagnosis for this admission?: Yes Plan: Patient counseled and encouraged to quit smoking
--- NOTE | 2018-11-01 17:05 | PDOC CONSULTATION ---
Consultation Consult Date: 11/01/18 Attending physician:: BILL PETERS Consult reason:: Port History of Present Illness Admission Date/PCP: 10/29/18 15:27 KARL WIN MD Patient complains of: Dehydration History of Present Illness: ALBAN BALLESTEROS is a 53 year old female Seen in the emergency department for dehydration felt secondary to side effects of chemotherapy. Patient was admitted with acute renal insufficiency, received hydration is now clinically improved. Her white blood cell count is down to 1.5 with 59% segs. She is not on isolation. Feels better. According to the patient she was diagnosed with left lung carcinoma last fall. Since June she has been receiving chemotherapy at [facility] since June under the direction of Dr. Segura, using her peripheral veins in a vein for under with success. Patient states she received a certificate demonstrating she had completed her chemotherapy. In August she started r adiation therapy with the radiation oncologist here to [facility]. She has never been offered a port. Past Medical History Cardiac Medical History: Reports: Hypertension Denies: Coronary Artery Disease Endocrine Medical History: Denies: Diabetes Mellitus Type 1, Diabetes Mellitus Type 2 Malignancy Medical History: Reports: Lung Cancer Psychiatric Medical History: Denies: Depression Past Surgical History Past Surgical History: Reports: Section - x3, Herniorrhaphy, Other - History of hernia repair. Also history of perforated peptic ulcer. Social History Smoking Status: Current Every Day Smoker Frequency of Alcohol Use: None Hx Recreational Drug Use: No Drugs: None Hx Prescription Drug Abuse: No Family History Family History: Reviewed & Not Pertinent Parental Family History Reviewed: Yes Children Family History Reviewed: Yes Sibling(s) Family History Reviewed.: Yes Medication/Allergy Home Medications: Nystatin/Dexameth/Diphen [Magic Mouthwash (Omh Formula) Susp] 10 ml PO QID 10/30/18 Oxycodone HCl [Oxy-Ir 5 mg Tablet] 5 mg PO Q4HP PRN 10/30/18 Allergies/Adverse Reactions: No Known Allergies Allergy (Verified 10/14/18 13:07) Review of Systems Constitutional: PRESENT: as per HPI Eyes: ABSENT: visual disturbances Ears: ABSENT: hearing changes Psychiatric: ABSENT: anxiety, depression, homidical ideation, suicidal ideation Endocrine: ABSENT: cold intolerance, heat intolerance, polydipsia, polyuria Physical Exam Vital Signs: Temp Pulse Resp BP Pulse Ox 98.5 F 100 18 130/83 H 99 11/01/18 08:16 11/01/18 14:00 11/01/18 08:16 11/01/18 08:16 11/01/18 08:16 Intake & Output 10/31/18 11/01/18 11/02/18 06:59 06:59 06:59 Intake Total 2839 3728 1000 Balance 2839 3728 1000 Weight 47.1 kg 47.5 kg General appearance: PRESENT: no acute distress Head exam: PRESENT: normocephalic Eye exam: PRESENT: EOMI Mouth exam: PRESENT: dry mucosa Neck exam: PRESENT: full ROM Respiratory exam: PRESENT: clear to auscultation frederick Cardiovascular exam: PRESENT: RRR GI/Abdominal exam: PRESENT: soft Rectal exam: PRESENT: deferred Musculoskeletal exam: PRESENT: full ROM Neurological exam: PRESENT: alert, awake, oriented to person, oriented to place Skin exam: PRESENT: intact Results Laboratory Results: 11/01/18 06:45 11/01/18 06:45 11/01/18 11/01/18 06:45 06:45 WBC 1.2 L* RBC 3.92 Hgb 12.2 Hct 35.5 L MCV 91 MCH 31.2 MCHC 34.4 RDW 18.6 H Plt Count 103 L Seg Neutrophils % Not Reportable Lymphocytes % Not Reportable Monocytes % Not Reportable Eosinophils % Not Reportable Basophils % Not Reportable Absolute Neutrophils Not Reportable Absolute Lymphocytes Not Reportable Absolute Monocytes Not Reportable Absolute Eosinophils Not Reportable Absolute Basophils Not Reportable Sodium 137.5 Potassium 3.6 Chloride 101 Carbon Dioxide 29 Anion Gap 8 BUN 11 Creatinine 0.82 Est GFR ( Amer) > 60 Est GFR (Non-Af Amer) > 60 Glucose 89 Calcium 9.3 Impressions: Abdomen/Pelvis CT 10/29/18 14:40 IMPRESSION: NO SIGNIFICANT OR ACUTE FINDING IN THE ABDOMEN OR PELVIS ON CT SCAN WITH IV CONTRAST. Assessment & Plan - Diagnosis (1) Leukopenia Is this a current diagnosis for this admission?: Yes Plan: Impression: Post chemotherapeutic nausea vomiting dehydration acute renal failure, now improved with hydration. Request made for Port-A-Cath placement. In light of the patient's relative leukopenia, and soft patient for port placement, I would suggest holding off on inserting an [id number]-Iivp catheter in this patient at this time. Should additional IV access be Required, a temporary central line may be requested. Recommendations: 1. Discussed the above with hospitalist 2. Discussed the above with patient. She is comfortable with adopting a [id number]-ozt-nag approach with regards to Port-A-Cath insertion 3. Reconsult surgery if clinically indicated. (2) Acute kidney injury Is this a current diagnosis for this admission?: Yes (3) Chemotherapy induced nausea and vomiting Is this a current diagnosis for this admission?: Yes (4) Current everyday smoker Is this a current diagnosis for this admission?: Yes (5) Nausea & vomiting Qualifiers: Vomiting type: unspecified Vomiting Intractability: non-intractable Qualified Code(s): R11.2 - Nausea with vomiting, unspecified
[2018-11-02 05:19] LABS: HEMATOCRIT 30.8 % (36.0-47.0); HEMOGLOBIN 10.8 g/dL (12.0-15.5); MEAN CORPUSCULAR HEMOGLOBIN 31.9 pg (27.0-33.4); MEAN CORPUSCULAR HGB CONC 35.1 g/dL (32.0-36.0); MEAN CORPUSCULAR VOLUME 91 fl (80-97); RED BLOOD COUNT 3.39 10^6/uL (3.72-5.28); RED CELL DISTRIBUTION WIDTH 18.6 % (11.5-14.0)
[2018-11-02] MEDS: HEPARIN SOD (PORCINE) 5,000 UNIT/ML 1 ML SYRINGE SUBCUT SCH ×3 (05:25→21:21)
[2018-11-02 06:13] LABS: PLATELET COUNT 92 10^3/uL (150-450)
[2018-11-02 06:26] LABS: WHITE BLOOD COUNT 1.4 10^3/uL (4.0-10.5)
[2018-11-02 06:34] LABS: ABSOLUTE LYMPHOCYTES# (MANUAL) 0.3 10^3/uL (0.5-4.7); ABSOLUTE MONOCYTES # (MANUAL) 0.2 10^3/uL (0.1-1.4); ABSOLUTE NEUTROPHILS# (MANUAL) 0.9 10^3/uL (1.7-8.2); BASOPHILS % (MANUAL) 0 % (0-2); EOSINOPHILS % (MANUAL) 4 % (0-6); LYMPHOCYTES % (MANUAL) 18 % (13-45); MONOCYTES % (MANUAL) 12 % (3-13); SEGMENTED NEUTROPHILS % (MAN) 66 % (42-78); TOTAL CELLS COUNTED 50
[2018-11-02 06:38] LABS: ANISOCYTOSIS 2+; POIKILOCYTOSIS 2+; TOXIC GRANULATION 1+
[2018-11-02 06:39] LABS: BURR CELLS 2+; OVALOCYTES SLIGHT; PLATELET COMMENT DECREASED; PLATELET LARGE PRESENT; SCHISTOCYTES 2+
--- NOTE | 2018-11-02 13:14 | PDOC PROGRESS REPORT ---
Subjective Subjective:: I seen and examined the patient while she is propped up in bed. Alert and oriented. She is not in pain or distress. Her white cell count is trending up from 1.2-1.4. I will check her WBC in a.m. and if still trending up she is potential discharge for tomorrow. Reason For Visit: CHEMOTHERAPY-INDUCED NAUSEA AND VOMITING Physical Exam Vital Signs: Temp Pulse Resp BP Pulse Ox 98.7 F 93 16 115/79 100 11/02/18 08:06 11/02/18 08:06 11/02/18 08:06 11/02/18 08:06 11/02/18 08:06 Intake & Output 11/01/18 11/02/18 11/03/18 06:59 06:59 06:59 Intake Total 3728 2766 800 Output Total 800 Balance 3728 1966 800 Weight 47.5 kg 49.2 kg General appearance: PRESENT: no acute distress Eye exam: PRESENT: conjunctiva pink Teeth exam: PRESENT: edentulous Neck exam: ABSENT: carotid bruit, JVD, lymphadenopathy, thyromegaly Respiratory exam: PRESENT: crackles Pulses: PRESENT: normal dorsalis pedis pul GI/Abdominal exam: PRESENT: normal bowel sounds, soft. ABSENT: distended, guarding, mass, organolmegaly, rebound, tenderness Neurological exam: PRESENT: alert, awake, oriented to time, oriented to situation Results Laboratory Results: 11/02/18 03:57 11/01/18 06:45 11/02/18 03:57 WBC 1.4 L* RBC 3.39 L Hgb 10.8 L Hct 30.8 L MCV 91 MCH 31.9 MCHC 35.1 RDW 18.6 H Plt Count 92 L Seg Neutrophils % Not Reportable Lymphocytes % Not Reportable Monocytes % Not Reportable Eosinophils % Not Reportable Basophils % Not Reportable Absolute Neutrophils Not Reportable Absolute Lymphocytes Not Reportable Absolute Monocytes Not Reportable Absolute Eosinophils Not Reportable Absolute Basophils Not Reportable Impressions: Abdomen/Pelvis CT 10/29/18 14:40 IMPRESSION: NO SIGNIFICANT OR ACUTE FINDING IN THE ABDOMEN OR PELVIS ON CT SCAN WITH IV CONTRAST. Assessment & Plan - Diagnosis (1) Leukopenia Is this a current diagnosis for this admission?: Yes Plan: Chemoradiation induced (2) Hypertensive urgency Is this a current diagnosis for this admission?: Yes Plan: Has been managed accordingly (3) Acute kidney injury Is this a current diagnosis for this admission?: Yes Plan: Has resolved (4) Chemotherapy induced nausea and vomiting Is this a current diagnosis for this admission?: Yes Plan: Improving (5) Current everyday smoker Is this a current diagnosis for this admission?: Yes Plan: Patient counseled and encouraged to quit smoking (6) Lung cancer Is this a current diagnosis for this admission?: Yes Plan: Patient completed a course of chemo and radiation.
[2018-11-02] MEDS: NORMAL SALINE 1000 ML 1,000 ML IV PRN ×2 (13:20→22:49)
[2018-11-03] MEDS: HEPARIN SOD (PORCINE) 5,000 UNIT/ML 1 ML SYRINGE SUBCUT SCH (05:13)
[2018-11-03 05:26] LABS: HEMATOCRIT 31.8 % (36.0-47.0); HEMOGLOBIN 11.1 g/dL (12.0-15.5); MEAN CORPUSCULAR HEMOGLOBIN 31.7 pg (27.0-33.4); MEAN CORPUSCULAR HGB CONC 34.9 g/dL (32.0-36.0); MEAN CORPUSCULAR VOLUME 91 fl (80-97); PLATELET COUNT 105 10^3/uL (150-450); RED BLOOD COUNT 3.51 10^6/uL (3.72-5.28); RED CELL DISTRIBUTION WIDTH 18.9 % (11.5-14.0)
[2018-11-03 06:01] LABS: WHITE BLOOD COUNT 1.3 10^3/uL (4.0-10.5)
[2018-11-03 06:05] LABS: ABSOLUTE LYMPHOCYTES# (MANUAL) 0.1 10^3/uL (0.5-4.7); ABSOLUTE MONOCYTES # (MANUAL) 0.2 10^3/uL (0.1-1.4); BASOPHILS % (MANUAL) 0 % (0-2); EOSINOPHILS % (MANUAL) 0 % (0-6); LYMPHOCYTES % (MANUAL) 8 % (13-45); MONOCYTES % (MANUAL) 14 % (3-13); SEGMENTED NEUTROPHILS % (MAN) 78 % (42-78); TOTAL CELLS COUNTED 50
[2018-11-03 06:06] LABS: ANISOCYTOSIS 1+; PLATELET COMMENT ADEQUATE; POLYCHROMASIA 1+
[2018-11-03 08:47] VITALS: BP 104/66
--- NOTE | 2018-11-03 09:05 | PDOC DISCHARGE SUMMARY ---
General - Admit/Disc Date/PCP Admission Date/Primary Care Provider: 10/29/18 15:27 KARL WIN MD Discharge Date: 11/03/18 - Discharge Diagnosis (1) Leukopenia Is this a current diagnosis for this admission?: Yes (2) Hypertensive urgency Is this a current diagnosis for this admission?: Yes (3) Acute kidney injury Is this a current diagnosis for this admission?: Yes (4) Chemotherapy induced nausea and vomiting Is this a current diagnosis for this admission?: Yes (5) Current everyday smoker Is this a current diagnosis for this admission?: Yes (6) Lung cancer Is this a current diagnosis for this admission?: Yes - Additional Information Discharge Activity: Activity As Tolerated, Balance Activity w/Rest Home Medications: Nystatin/Dexameth/Diphen [Magic Mouthwash (Omh Formula) Susp] 10 ml PO QID 10/30/18 Oxycodone HCl [Oxy-Ir 5 mg Tablet] 5 mg PO Q4HP PRN 10/30/18 History of Present Illness History of Present Illness: ALBAN BALLESTEROS is a 53 year old female who is on chemotherapy for lung cancer who has had persistent nausea and vomiting for 2-3 days. She has not been able to eat or take any of her other medications. She is not been able to hold any fluids down. Nothing that she takes at home room is really help to make it better. The emergency department she got a dose of Zofran, Reglan, and then finally Haldol before she finally got some relief, and she still vomited once with the Haldol. Her creatinine was elevated a little bit above baseline as well. She has been admitted for IV fluids and antiemetics. Hospital Course Hospital Course: This is a 53 years old black female patient with lung CA and who has been on chemo and radiation. Patient admitted for intractable nausea and vomiting which is chemo induced. Patient also found to have acute kidney injury due to dehydration. Her kidney function has improved and her intractable nausea and vomiting has subsided. Her vital signs are within normal limits. Her current issue is her leukopenia yesterday it was 1.42 date is 1.3. Patient does not have any fever or other constitutional symptoms. I will send her home with [facility] and patient advised to come if she develop any constitutional symptoms. She has upcoming follow-up with her oncologist. Physical Exam Vital Signs: Temp Pulse Resp BP Pulse Ox 99.2 F 96 14 104/66 100 11/03/18 08:45 11/03/18 08:45 11/03/18 08:45 11/03/18 08:45 11/03/18 08:45 Intake & Output 11/02/18 11/03/18 11/04/18 06:59 06:59 06:59 Intake Total 2766 3137 Output Total 800 400 Balance 1966 2737 Weight 49.2 kg 52 kg General appearance: PRESENT: no acute distress, well-developed, well-nourished Head exam: PRESENT: atraumatic, normocephalic Eye exam: PRESENT: conjunctiva pink, EOMI, PERRLA. ABSENT: scleral icterus Ear exam: PRESENT: normal external ear exam Mouth exam: PRESENT: moist, tongue midline Neck exam: ABSENT: carotid bruit, JVD, lymphadenopathy, thyromegaly Respiratory exam: PRESENT: decreased breath sounds - Left lung Cardiovascular exam: PRESENT: RRR. ABSENT: diastolic murmur, rubs, systolic murmur Pulses: PRESENT: normal dorsalis pedis pul Vascular exam: PRESENT: normal capillary refill GI/Abdominal exam: PRESENT: normal bowel sounds, soft. ABSENT: distended, guarding, mass, organolmegaly, rebound, tenderness Rectal exam: PRESENT: deferred Extremities exam: PRESENT: full ROM. ABSENT: calf tenderness, clubbing, pedal edema Neurological exam: PRESENT: alert, awake, oriented to person, oriented to place, oriented to time, oriented to situation, CN II-XII grossly intact. ABSENT: motor sensory deficit Psychiatric exam: PRESENT: appropriate affect, normal mood. ABSENT: homicidal ideation, suicidal ideation Skin exam: PRESENT: dry, intact, warm. ABSENT: cyanosis, rash Results Laboratory Results: 11/03/18 04:15 11/01/18 06:45 11/03/18 04:15 WBC 1.3 L* RBC 3.51 L Hgb 11.1 L Hct 31.8 L MCV 91 MCH 31.7 MCHC 34.9 RDW 18.9 H Plt Count 105 L Seg Neutrophils % Not Reportable Lymphocytes % Not Reportable Monocytes % Not Reportable Eosinophils % Not Reportable Basophils % Not Reportable Absolute Neutrophils Not Reportable Absolute Lymphocytes Not Reportable Absolute Monocytes Not Reportable Absolute Eosinophils Not Reportable Absolute Basophils Not Reportable Impressions: Abdomen/Pelvis CT 10/29/18 14:40 IMPRESSION: NO SIGNIFICANT OR ACUTE FINDING IN THE ABDOMEN OR PELVIS ON CT SCAN WITH IV CONTRAST. Qualifiers - * PATIENT BEING DISCHARGED WITH ANY OF THE FOLLOWING DIAGNOSIS: No
== END 2018-11-03 10:00 | disposition home or self-care (01) | DRG 683 ==
LOC: ER 11:50 → EH 14:51 → OBSVTOIN 15:27 → 5 16:45
PROVIDERS: ADMIT Hospitalist; ATTEND Hospitalist
DX: N17.9 Acute kidney failure, unspecified (principal); C34.92 Malignant neoplasm of unspecified part of left bronchus or lung; E86.0 Dehydration; T45.1X5A Adverse effect of antineoplastic and immunosuppressive drugs, initial encounter; D72.819 Decreased white blood cell count, unspecified; I16.0 Hypertensive urgency; F17.200 Nicotine dependence, unspecified, uncomplicated; I10 Essential (primary) hypertension; Z79.899 Other long term (current) drug therapy
CPT/HCPCS: 36415; 74177; 80048; 80053; 81001; 83690; 85025; 96361; 96374; 96375; 99285; J1100; J1630; J1644; J2270; J2405; J2550; J2765; J3490; J7030; S0119

== ENCOUNTER 2019-10-13 14:35 | Emergency (ER) | payer OTHER, MEDICAID ==
[2019-10-13] MEDS ORDERED: NORMAL SALINE IV ONE (15:12)
[2019-10-13] MEDS ORDERED: LEVETIRACETAM 1000 MG/NACL-ISO 1,000 MG/100 ML RTUPB IV ONE (15:13)
--- NOTE | 2019-10-13 16:26 | RADIOLOGY REPORT (SQ) ---
EXAM DESCRIPTION: CT HEAD WITHOUT COMPLETED DATE/TIME: 10/13/2019 4:07 pm REASON FOR STUDY: ams COMPARISON: MRI 09/16/2019 TECHNIQUE: Axial images acquired through the brain without intravenous contrast. Images reviewed wi th bone, brain and subdural windows. Additional sagittal and coronal reconstructions were generated. Images stored on PACS. All CT scanners at this facility use dose modulation, iterative reconstruction, and/or weight based d osing when appropriate to reduce radiation dose to as low as reasonably achievable (ALARA). [facility]: Dose Right [facility]: CareDose [facility]: Dose Right [facility]: Teradose 4D [facility]: [employer] Technologies RADIATION DOSE: CT Rad equipment meets quality standard of care and radiation dose reduction techniq ues were employed. CTDIvol: 55.2 mGy. DLP: 2334 mGy-cm. mGy. LIMITATIONS: None. FINDINGS: VENTRICLES: Normal size and contour. CEREBRUM: No hemorrhage or masses. There is low density in the right occipital lobe. This is an are a of acute infarction seen on the previous MRI. Somewhat worrisome is the appearance of persistent ed lloyd in this region. Would question an underlying or infiltrative process. CEREBELLUM: No masses. No hemorrhage. No alteration of density. No evidence for acute infarction. EXTRAAXIAL SPACES: No fluid collections. No masses. ORBITS AND GLOBE: No intra- or extraconal masses. Normal contour of globe without masses. CALVARIUM: No fracture. PARANASAL SINUSES: No fluid or mucosal thickening. SOFT TISSUES: No mass or hematoma. OTHER: No other significant finding. IMPRESSION: Low density in the right occipital lobe at the site of a previous infarct is seen on MRI 09/16/2019. Of concern is the persistent edema. Worrisome for infiltrative process. . EVIDENCE OF ACUTE STROKE: Subacute COMMENT: Recommend MRI with contrast for further evaluation. Quality ID # 436: Final reports with documentation of one or more dose reduction techniques (e.g., Au tomated exposure control, adjustment of the mA and/or kV according to patient size, use of iterative reconstruction technique) TECHNICAL DOCUMENTATION: JOB ID: [id number] [email or web address]- All Rights Reserved Reading location - IP/workstation name: [email or web address]
--- NOTE | 2019-10-13 16:28 | RADIOLOGY REPORT (SQ) ---
EXAM DESCRIPTION: CHEST SINGLE VIEW COMPLETED DATE/TIME: 10/13/2019 4:10 pm REASON FOR STUDY: ams COMPARISON: 09/02/2018 EXAM PARAMETERS: NUMBER OF VIEWS: One view. TECHNIQUE: Single frontal radiographic view of the chest acquired. RADIATION DOSE: NA LIMITATIONS: None. FINDINGS: LUNGS AND PLEURA: No opacities, masses or pneumothorax. No pleural effusion. MEDIASTINUM AND HILAR STRUCTURES: No masses. Contour normal. HEART AND VASCULAR STRUCTURES: Heart normal in size. Normal vasculature. BONES: No acute findings. HARDWARE: None in the chest. OTHER: No other significant finding. IMPRESSION: NO ACUTE RADIOGRAPHIC FINDING IN THE CHEST. TECHNICAL DOCUMENTATION: JOB ID: [id number] [email or web address]- All Rights Reserved Reading location - IP/workstation name: [email or web address]
--- NOTE | 2019-10-13 16:30 | RADIOLOGY REPORT (SQ) ---
EXAM DESCRIPTION: CT CERVICAL SPINE WITHOUT COMPLETED DATE/TIME: 10/13/2019 4:07 pm REASON FOR STUDY: TRAUMA COMPARISON: None. TECHNIQUE: Axial images acquired through the cervical spine without intravenous contrast. Images re viewed with lung, soft tissue and bone windows. Reconstructed coronal and sagittal MPR images review ed. Images stored on PACS. All CT scanners at this facility use dose modulation, iterative reconstruction, and/or weight based d osing when appropriate to reduce radiation dose to as low as reasonably achievable (ALARA). [facility]: Dose Right [facility]: CareDose [facility]: Dose Right [facility]: Teradose 4D [facility]: [employer] RADIATION DOSE: CT Rad equipment meets quality standard of care and radiation dose reduction techniq ues were employed. CTDIvol: 9.7 mGy. DLP: 183 mGy-cm. mGy. LIMITATIONS: None. FINDINGS: ALIGNMENT: Anatomic. MINERALIZATION: Normal. VERTEBRAL BODIES: No fractures or dislocation. DISCS: Multilevel disc space narrowing with osteophytes. FACETS, LATERAL MASSES, POSTERIOR ELEMENTS: Facet arthropathy. No fractures. No dislocation. No ac sadi findings. HARDWARE: None in the spine. VISUALIZED RIBS: No fractures. LUNG APICES AND SOFT TISSUES: Marked decrease in size of the right apical mass containing calcificati ons since the previous study 05/23/2018. Underlying interstitial changes remain. OTHER: No other significant finding. IMPRESSION: CHRONIC DEGENERATIVE CHANGES. NO ACUTE FINDINGS. TECHNICAL DOCUMENTATION: JOB ID: [id number] Quality ID # [id number]: Final reports with documentation of one or more dose reduction techniques (e.g., Au tomated exposure control, adjustment of the mA and/or kV according to patient size, use of iterative reconstruction technique) 2010 [employer]- All Rights Reserved Reading location - IP/workstation name: [email or web address]
[2019-10-13 16:36] LABS: ABSOLUTE LYMPHOCYTES (AUTO) 0.4 10^3/uL (0.5-4.7); ABSOLUTE MONOCYTES (AUTO) 0.8 10^3/uL (0.1-1.4); ABSOLUTE NEUT (AUTO) 5.9 10^3/uL (1.7-8.2); BASOPHILS % (AUTO) 0.3 % (0-2); EOSINOPHILS % (AUTO) 0.5 % (0-6); HEMATOCRIT 40.2 % (36.0-47.0); HEMOGLOBIN 13.7 g/dL (12.0-15.5); LYMPHOCYTES % (AUTO) 5.4 % (13-45); MEAN CORPUSCULAR HEMOGLOBIN 31.7 pg (27.0-33.4); MEAN CORPUSCULAR HGB CONC 34.1 g/dL (32.0-36.0); MEAN CORPUSCULAR VOLUME 93 fl (80-97); MONOCYTES % (AUTO) 11.9 % (3-13); PLATELET COUNT 200 10^3/uL (150-450); RED BLOOD COUNT 4.32 10^6/uL (3.72-5.28); RED CELL DISTRIBUTION WIDTH 16.8 % (11.5-14.0); SEGMENTED NEUTROPHILS % (AUTO) 81.9 % (42-78); TOTAL CELLS COUNTED % (AUTO) 100 %; WHITE BLOOD COUNT 7.2 10^3/uL (4.0-10.5)
[2019-10-13 16:37] LABS: ALBUMIN 4.9 g/dL (3.5-5.0); ALKALINE PHOSPHATASE 73 U/L (38-126); ANION GAP 13 (5-19); ASPARTATE AMINO TRANSFERASE 35 U/L (14-36); BILIRUBIN,DIRECT 0.2 mg/dL (0.0-0.4); BILIRUBIN,TOTAL 0.5 mg/dL (0.2-1.3); BLOOD UREA NITROGEN 10 mg/dL (7-20); CALCIUM 10.4 mg/dL (8.4-10.2); CARBON DIOXIDE 27 mmol/L (22-30); CHLORIDE 101 mmol/L (98-107); POTASSIUM 3.7 mmol/L (3.6-5.0); TOTAL PROTEIN 7.8 g/dL (6.3-8.2)
[2019-10-13 16:44] LABS: INTERNATIONAL RATION (INR) 0.86; PROTHROMBIN TIME 11.7 SEC (11.4-15.4)
[2019-10-13 16:45] LABS: GLUCOSE 51 mg/dL (75-110)
[2019-10-13] MEDS ORDERED: CEFEPIME 2 GM/D5W RTU 2 GM/50 ML RTUPB IV ONE (17:40)
[2019-10-13] MEDS ORDERED: VANCOMYCIN HCL INJ 1000 MG VIAL IV ONE (17:40)
[2019-10-13] MEDS ORDERED: DEXTROSE 50%-WATER 25 GM/50 ML DISP.SYRIN IV ONE ×3 (17:56→20:35)
[2019-10-13 18:55] LABS: VENOUS BLOOD BASE EXCESS -1.1 mmol/L; VENOUS BLOOD PCO2 53.6 mmHg (35-63); VENOUS BLOOD PH 7.3 (7.30-7.42)
[2019-10-13 20:06] LABS: APPEARANCE,URINE CLEAR; BILIRUBIN,URINE NEGATIVE (NEGATIVE); COLOR,URINE YELLOW; GLUCOSE, URINE 150 mg/dL (NEGATIVE); KETONES,URINE TRACE mg/dL (NEGATIVE); PROTEIN,URINE NEGATIVE (NEGATIVE); URINE SPECIFIC GRAVITY 1.011; UROBILINOGEN,URINE NEGATIVE mg/dL (<2.0)
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
[2019-10-13] MEDS ORDERED: DEXTROSE 5%-1/2 NORMAL SALINE 500 ML IV ONE (20:36)
[2019-10-13 21:22] VITALS: BP 102/66
--- NOTE | 2019-10-14 00:23 | EKG REPORT ---
SEVERITY:- ABNORMAL ECG - SINUS RHYTHM BIATRIAL ABNORMALITIES BORDERLINE R WAVE PROGRESSION, ANTERIOR LEADS NONSPECIFIC T ABNORMALITIES, ANT-LAT LEADS BORDERLINE ST ELEVATION, INFERIOR LEADS : Confirmed by: Janette Valenzuela 14-Oct-2019 00:22:09
== END 2019-10-13 20:30 | disposition short-term general hospital (02) ==
LOC: ER 14:35
DX: Z04.1 Encounter for examination and observation following transport accident (principal); C79.31 Secondary malignant neoplasm of brain; C34.90 Malignant neoplasm of unspecified part of unspecified bronchus or lung; E11.649 Type 2 diabetes mellitus with hypoglycemia without coma; R56.9 Unspecified convulsions; R32 Unspecified urinary incontinence; R51 Headache; R41.0 Disorientation, unspecified; R00.0 Tachycardia, unspecified; I10 Essential (primary) hypertension; Z79.899 Other long term (current) drug therapy; Z87.891 Personal history of nicotine dependence
CPT/HCPCS: 93005; 96376; 99291; 96361; 96375; 96365; 96366; 96367; 36415; 87040; 87086; 82962; 85025; 85610; 87088; 80053; 81001; 84484; 82803; 83605; 71045; 70450; 72125; 93010; J3490; J7070; J7030; J3370; J1953; J0692; 87077; 87150; 87186

== ENCOUNTER 2020-02-08 11:45 | Inpatient (IN) | payer MEDICAID ==
[2020-02-08] MEDS ORDERED: NOREPINEPHRINE BITARTRATE INJ/PF 4 MG/4 ML SDV IV ONE (12:01)
[2020-02-08] MEDS ORDERED: PANTOPRAZOLE SODIUM 40 MG VIAL IV ONE (12:11)
[2020-02-08] MEDS ORDERED: NORMAL SALINE 1000 ML 1,000 ML IV PRN (12:11)
[2020-02-08] MEDS ORDERED: DEXTROSE 5%-WATER 250 ML with NOREPINEPHRINE BITARTRATE 4 MG IV PRN ×2 (12:11)
[2020-02-08 12:31] LABS: ALBUMIN 3.1 g/dL (3.5-5.0); ALKALINE PHOSPHATASE 50 U/L (38-126); BILIRUBIN,DIRECT 0.2 mg/dL (0.0-0.4); BILIRUBIN,TOTAL 0.2 mg/dL (0.2-1.3); BLOOD UREA NITROGEN 6 mg/dL (7-20); CALCIUM 9.1 mg/dL (8.4-10.2); GLUCOSE 144 mg/dL (75-110); POTASSIUM 3.8 mmol/L (3.6-5.0); TOTAL PROTEIN 5.2 g/dL (6.3-8.2)
[2020-02-08] MEDS ORDERED: CEFEPIME 2 GM/D5W RTU 2 GM/50 ML RTUPB IV ONE (12:31)
[2020-02-08] MEDS ORDERED: VANCOMYCIN HCL INJ 1000 MG VIAL IV ONE (12:32)
[2020-02-08 12:34] LABS: INTERNATIONAL RATION (INR) 1.43; PROTHROMBIN TIME 17.6 SEC (11.4-15.4)
[2020-02-08 12:35] LABS: PARTIAL THROMBOPLASTIN TIME 61.6 SEC (23.5-35.8)
--- NOTE | 2020-02-08 12:35 | RADIOLOGY REPORT (SQ) ---
EXAM DESCRIPTION: CHEST SINGLE VIEW IMAGES COMPLETED DATE/TIME: 02/08/2020 12:25 pm REASON FOR STUDY: intubation COMPARISON: 10/13/2019 EXAM PARAMETERS: NUMBER OF VIEWS: One view TECHNIQUE: Single frontal radiograph of the chest. RADIATION DOSE: N/A LIMITATIONS: None. FINDINGS: TEMPORARY SUPPORT DEVICES:ETT is at the delmis. Should be pulled back 2 cm. NG tube appe ars to be coiled in the upper esophagus. The tip is proximal to the stomach. LUNGS AND PLEURA: Marked opacity in the right upper lobe. Minimal opacity at the left base. No effus ions. No masses. No pneumothorax. MEDIASTINUM AND HILAR STRUCTURES: No masses. Contour normal. HEART AND VASCULAR STRUCTURES: Heart normal in size. normal vascularity. Aorta normal for age. BONES: No acute findings. OTHER: No other significant finding. IMPRESSION: Marked right upper lobe opacity with minimal opacity at the left base. ETT is low. Should be pulled back 2 cm. NG tube coiled in the upper esophagus and the tip is proximal to the stomach. RECOMMENDATIONS: The findings were sent to the Radiology Results Communication Center at 12:29 on to be communicated to a licensed caregiver. TECHNICAL DOCUMENTATION: JOB ID: [id number] 2010 [employer]- All Rights Reserved Reading location - IP/workstation name: [email or web address]
[2020-02-08 12:36] LABS: CHLORIDE 108 mmol/L (98-107)
[2020-02-08 12:37] LABS: HEMATOCRIT 40.3 % (36.0-47.0); HEMOGLOBIN 12.1 g/dL (12.0-15.5); MEAN CORPUSCULAR HEMOGLOBIN 31.6 pg (27.0-33.4); MEAN CORPUSCULAR HGB CONC 30.1 g/dL (32.0-36.0); MEAN CORPUSCULAR VOLUME 105 fl (80-97); PLATELET COUNT 171 10^3/uL (150-450); RED BLOOD COUNT 3.83 10^6/uL (3.72-5.28); RED CELL DISTRIBUTION WIDTH 15.9 % (11.5-14.0); WHITE BLOOD COUNT 5.9 10^3/uL (4.0-10.5)
[2020-02-08 12:38] LABS: ASPARTATE AMINO TRANSFERASE 158 U/L (14-36)
[2020-02-08 12:39] LABS: ALCOHOL < 10 mg/dL (NONE DETECTED)
[2020-02-08] MEDS ORDERED: NORMAL SALINE 1000 ML 1,000 ML IV ONE (12:39)
[2020-02-08 12:40] LABS: ARTERIAL BLOOD BASE EXCESS -27.3 mmol/L; ARTERIAL BLOOD FIO2 40%; ARTERIAL BLOOD H2CO3 1.13 mmol/L (1.05-1.35); ARTERIAL BLOOD O2 SATURATION 96.1 % (94-98); ARTERIAL BLOOD PCO2 37.7 mmHg (35-45); ARTERIAL BLOOD PO2 143.9 mmHg (80-100); ARTERIAL BLOOD TOTAL CO2 7.2 mmol/L (21-25)
[2020-02-08 12:40] LABS: ANION GAP 27 (5-19)
[2020-02-08 12:41] LABS: TROPONIN I 0.027 ng/mL
[2020-02-08 12:42] LABS: CARBON DIOXIDE 8 mmol/L (22-30)
[2020-02-08 12:43] LABS: ARTERIAL BLOOD PH 6.82 (7.35-7.45)
[2020-02-08] MEDS ORDERED: SODIUM BICARBONATE 8.4% INJ 50 MEQ/50 ML DISP.SYRIN IV ONE (12:45)
[2020-02-08 12:58] LABS: D-DIMER 10.84 ug/mL (0.00-0.50)
[2020-02-08 13:01] LABS: BASOPHILS % (MANUAL) 0 % (0-2); EOSINOPHILS % (MANUAL) 0 % (0-6); TOTAL CELLS COUNTED 100
[2020-02-08 13:02] LABS: PLATELET CLUMPS PRESENT; PLATELET COMMENT ADEQUATE; PLATELET LARGE PRESENT
[2020-02-08] MEDS ORDERED: VECURONIUM BROMIDE INJ 10 MG VIAL IV ONE (13:13)
--- NOTE | 2020-02-08 13:14 | RADIOLOGY REPORT (SQ) ---
EXAM DESCRIPTION: CT HEAD WITHOUT IMAGES COMPLETED DATE/TIME: 02/08/2020 1:01 pm REASON FOR STUDY: cardiac arrest COMPARISON: CT scan 10/13/2019 TECHNIQUE: Axial images acquired through the brain without intravenous contrast. Images reviewed wi th bone, brain and subdural windows. Additional sagittal and coronal reconstructions were generated. Images stored on PACS. All CT scanners at this facility use dose modulation, iterative reconstruction, and/or weight based d osing when appropriate to reduce radiation dose to as low as reasonably achievable (ALARA). [facility]: Dose Right [facility]: CareDose [facility]: Dose Right [facility]: Teradose 4D [facility]: [employer] RADIATION DOSE: CT Rad equipment meets quality standard of care and radiation dose reduction techniq ues were employed. CTDIvol: 53.2 mGy. DLP: 937 mGy-cm. mGy. LIMITATIONS: None. FINDINGS: VENTRICLES: Complete obliteration of the right lateral ventricle which is shifted leftward 2 cm. CEREBRUM: Extensive vasogenic edema in the right hemisphere. Extensive mass effect. No hemorrhage. Midline shift of almost 2 cm. CEREBELLUM: Obliteration of the basal cisterns. 4th ventricle is identified. EXTRAAXIAL SPACES: No fluid collections. No masses. ORBITS AND GLOBE: No intra- or extraconal masses. Normal contour of globe without masses. CALVARIUM: No fracture. PARANASAL SINUSES: No fluid or mucosal thickening. SOFT TISSUES: No mass or hematoma. OTHER: No other significant finding. IMPRESSION: Large mass effect in the right hemisphere with extensive vasogenic edema, midline shift, and obliteration the basal cisterns. EVIDENCE OF ACUTE STROKE: NO. COMMENT: Pertinent findings on the imaging study reported as a CRITICAL RESULT to RACHEL LOVE MD at13:08 on 02/08/2020. Category of Critical Result: Mass effect in the brain. Referring physician notes underlying metastat ic lung cancer. Quality ID # 436: Final reports with documentation of one or more dose reduction techniques (e.g., Au tomated exposure control, adjustment of the mA and/or kV according to patient size, use of iterative reconstruction technique) TECHNICAL DOCUMENTATION: JOB ID: [id number] 2010 [employer]- All Rights Reserved Reading location - IP/workstation name: [email or web address]
[2020-02-08 13:17] LABS: ABSOLUTE LYMPHOCYTES# (MANUAL) 2.8 10^3/uL (0.5-4.7); ABSOLUTE MONOCYTES # (MANUAL) 0.3 10^3/uL (0.1-1.4); ANISOCYTOSIS 1+; BURR CELLS 2+; METAMYELOCYTES % (MANUAL) 1 % (0-1); OVALOCYTES SLIGHT; POIKILOCYTOSIS 1+
[2020-02-08] MEDS ORDERED: MANNITOL 500 ML IV ONE (13:17)
[2020-02-08 13:19] LABS: APPEARANCE,URINE SLIGHTLY-CLOUDY; BILIRUBIN,URINE NEGATIVE (NEGATIVE); COLOR,URINE STRAW; GLUCOSE, URINE 150 mg/dL (NEGATIVE); KETONES,URINE NEGATIVE (NEGATIVE); LEUKOCYTE ESTERASE,URINE NEGATIVE (NEGATIVE); NITRITE,URINE NEGATIVE (NEGATIVE); PROTEIN,URINE >=500 mg/dL (NEGATIVE); URINE SPECIFIC GRAVITY 1.007; UROBILINOGEN,URINE NEGATIVE mg/dL (<2.0)
[2020-02-08 13:21] LABS: BAND NEUTROPHILS % (MANUAL) 3 % (3-5); LYMPHOCYTES % (MANUAL) 47 % (13-45); MONOCYTES % (MANUAL) 5 % (3-13); SEGMENTED NEUTROPHILS % (MAN) 44 % (42-78)
[2020-02-08 13:27] LABS: URINE AMPHETAMINES SCREEN NEGATIVE; URINE BARBITURATES SCREEN NEGATIVE; URINE BENZODIAZEPINES SCREEN NEGATIVE; URINE METHADONE SCREEN NEGATIVE; URINE PHENCYCLIDINE SCREEN NEGATIVE
[2020-02-08 13:28] LABS: URINE COCAINE SCREEN UNCONFIRMED POSITIVE; URINE MARIJUANA (THC) SCREEN UNCONFIRMED POSITIVE
--- NOTE | 2020-02-08 13:35 | RADIOLOGY REPORT (SQ) ---
EXAM DESCRIPTION: CTA CHEST IMAGES COMPLETED DATE/TIME: 02/08/2020 1:22 pm REASON FOR STUDY: cardiac arrest COMPARISON: Chest radiograph TECHNIQUE: CT scan of the chest performed using helical scanning technique with dynamic intravenous contrast injection. Images reviewed with lung, soft tissue and bone windows. Reconstructed coronal and sagittal MPR images reviewed. Additional 3 dimensional post-processing performed to develop Maximal Intensity Projection images (NE P). All images stored on PACS. All CT scanners at this facility use dose modulation, iterative reconstruction, and/or weight based d osing when appropriate to reduce radiation dose to as low as reasonably achievable (ALARA). [facility]: Dose Right [facility]: CareDose [facility]: Dose Right [facility]: Teradose 4D [facility]: [employer] CONTRAST TYPE AND DOSE: contrast/concentration: Isovue 350.00 mg/ml; Total Contrast Delivered: 50.0 ml; Total Saline Delivered: 76.0 ml Contrast bolus not optimized for the pulmonary arteries. RENAL FUNCTION: Creatinine 1.23 RADIATION DOSE: CT Rad equipment meets quality standard of care and radiation dose reduction techniq ues were employed. CTDIvol: 11.3 - 12.0 mGy. DLP: 762 mGy-cm. . LIMITATIONS: None. FINDINGS: LUNGS AND PLEURA: Extensive opacity in the right upper lobe. Lesser left upper lobe opaci ty. No pneumothorax. AORTA AND GREAT VESSELS: No aneurysm. No dissection. HEART: No pericardial effusion. No significant coronary artery calcifications. PULMONARY ARTERIES: Less than optimal visualization. No large proximal emboli. HILAR AND MEDIASTINAL STRUCTURES: No identified masses or abnormal nodes. HARDWARE: ET tube. Nasogastric tube is coiled in the esophagus. The tip is in the stomach. UPPER ABDOMEN: See separate report of the CT of the abdomen. THYROID AND OTHER SOFT TISSUES: No masses. No adenopathy. BONES: No acute or significant finding. 3D MIPS: Confirm above findings. OTHER: No other significant finding. IMPRESSION: Extensive right upper lobe opacity. Lesser left upper lobe opacity. Consistent with pn eumonia. Possible aspiration. Pulmonary artery's not optimally visualized. No large proximal emboli. The nasogastric tube is coiled in the esophagus. The tip is in the stomach. COMMENT: Quality ID # 436: Final reports with documentation of one or more dose reduction techniques (e.g., Automated exposure control, adjustment of the mA and/or kV according to patient size, use of iterative reconstruction technique) TECHNICAL DOCUMENTATION: JOB ID: [id number] 2010 [employer]- All Rights Reserved Reading location - IP/workstation name: [email or web address]
--- NOTE | 2020-02-08 13:39 | RADIOLOGY REPORT (SQ) ---
EXAM DESCRIPTION: CTA ABDOMEN/PELVIS W WO IMAGES COMPLETED DATE/TIME: 02/08/2020 1:22 pm REASON FOR STUDY: cardiac arrest COMPARISON: None. TECHNIQUE: CT scan of the abdomen and pelvis performed using helical scanning technique with dynamic intravenous contrast injection. No oral contrast. Images reviewed with lung, soft tissue, and bone windows. Reconstructed coronal and sagittal MPR images reviewed. Delayed images for evaluation of the urinary system also acquired. All images stored on PACS. All CT scanners at this facility use dose modulation, iterative reconstruction, and/or weight based d osing when appropriate to reduce radiation dose to as low as reasonably achievable (ALARA). [facility]: Dose Right [facility]: CareDose [facility]: Dose Right [facility]: Teradose 4D [facility]: [employer] CONTRAST TYPE AND DOSE: 50 Omnipaque 350- low osmolar. RENAL FUNCTION: GFR > 60. RADIATION DOSE: . LIMITATIONS: None. FINDINGS: LOWER CHEST: See separate report of the CT of the chest. LIVER: Normal size. No masses. No dilated ducts. SPLEEN: Normal size. No focal lesions. PANCREAS: No masses. No significant calcifications. No adjacent inflammation or peripancreatic fluid collections. Pancreatic duct not dilated. GALLBLADDER: Gallstones. ADRENAL GLANDS: No significant masses or asymmetry. RIGHT KIDNEY AND URETER: No solid masses. No significant calcifications. No hydronephrosis or hyd roureter. LEFT KIDNEY AND URETER: No solid masses. No significant calcifications. No hydronephrosis or hydr oureter. AORTA AND VESSELS: Extensive vascular calcification. No aneurysm. RETROPERITONEUM: No retroperitoneal adenopathy, hemorrhage or masses. BOWEL AND PERITONEAL CAVITY: Marked gastric distention. Nasogastric tube is just into the stomach. APPENDIX: Not visualized. PELVIS: Flores catheter coiled in the bladder. ABDOMINAL WALL: No masses. No hernias. BONES: No significant or acute findings. OTHER: No other significant finding. IMPRESSION: Gallstones. Vascular calcification. Marked gastric distention. The nasogastric tube is barely in the stomach. Note that the nasogastric tube is coiled in the esophagus. TECHNICAL DOCUMENTATION: JOB ID: [id number] Quality ID # [id number]: Final reports with documentation of one or more dose reduction techniques (e.g., Au tomated exposure control, adjustment of the mA and/or kV according to patient size, use of iterative reconstruction technique) 2010 [employer]- All Rights Reserved Reading location - IP/workstation name: [email or web address]
[2020-02-08] MEDS: MIDAZOLAM HCL 50 MG/100 ML RTUINJ IV PRN (13:55)
[2020-02-08 14:18] LABS: A TYPE INFLUENZA AG NEGATIVE (NEGATIVE); B INFLUENZA AG NEGATIVE (NEGATIVE)
--- NOTE | 2020-02-08 14:55 | RADIOLOGY REPORT (SQ) ---
EXAM DESCRIPTION: CHEST SINGLE VIEW IMAGES COMPLETED DATE/TIME: 02/08/2020 2:44 pm REASON FOR STUDY: NG placement COMPARISON: 02/08/2020 1204 hours EXAM PARAMETERS: NUMBER OF VIEWS: One view TECHNIQUE: Single frontal radiograph of the chest. RADIATION DOSE: N/A LIMITATIONS: None. FINDINGS: TEMPORARY SUPPORT DEVICES:ETT in expected location. NG tube courses below the stevie-diaphr agm in to the stomach. LUNGS AND PLEURA: Right upper lobe opacity. No effusions. No masses. No pneumothorax. MEDIASTINUM AND HILAR STRUCTURES: No masses. Contour normal. HEART AND VASCULAR STRUCTURES: Heart normal in size. normal vascularity. Aorta normal for age. BONES: No acute findings. OTHER: No other significant finding. IMPRESSION: Stable appearance. Nasogastric tube is been repositioned and is in the stomach. No longer coil in the esophagus. ETT in good position. TECHNICAL DOCUMENTATION: JOB ID: [id number] 2010 [employer]- All Rights Reserved Reading location - IP/workstation name: [email or web address]
--- NOTE | 2020-02-08 15:19 | ER Document Report ---
Entered by MAYELIN JOHNSON SCRIBE 02/08/20 1453 Acting as scribe for:RACHEL LOVE MD ED Cardiac - General Chief Complaint: Cardiac Arrest Stated Complaint: UNRESPONSIVE Time Seen by Provider: 02/08/20 12:07 Primary Care Provider: KARL WIN MD [Primary Care Provider] - Follow up as needed Information source: Relative, Emergency Med Personnel Cannot obtain history due to: Intubated, Altered mental status Notes: This 54 year old female patient presents to the emergency department today with unresponsiveness upon arrival. EMS is at bedside and states the patient was found in her bathroom at home on the floor beside the toilet. EMS states when they arrived the patient was unresponsive, asystole, and they were unable to find a pulse. EMS states they obtained the patient's history from her daughter. Patient has a history of brain and lung cancer, and had a headache x1.5 hours prior to EMS being called. EMS states when they found her in the bathroom, she was warm and her pupils were fixed and dilated. TRAVEL OUTSIDE OF THE [place] IN LAST 30 DAYS: No - HPI Patient complains to provider of: Other - Headache patient does not meet any exclusion criteria for TPA at this time. I have reviewed the risks and benefits of administration of TPA with the family at the bedside. We have reviewed the risks of intracranial bleed and the possible benefits of increased functional independence at 90 days with the use of TPA. 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 Patient complained of headache today 1-1/2 hours prior to being found unresponsive. Cardiac risk factors: Hypertension - Related Data Allergies/Adverse Reactions: No Known Allergies Allergy (Verified 10/14/18 13:07) Past Medical History - General Information source: Relative, Emergency Med Personnel - Social History Smoking Status: Unknown if Ever Smoked Family History: Reviewed & Not Pertinent Patient has suicidal ideation: No Patient has homicidal ideation: No - Past Medical History Cardiac Medical History: Reports: Hx Hypertension Endocrine Medical History: Reports: Hx Diabetes Mellitus Type 2 Malignancy Medical History: Reports: Hx Brain Cancer, Hx Lung Cancer GI Medical History: Reports: Hx Ulcer Past Surgical History: Reports: Hx Abdominal Surgery - ruptured ulcer, hernia repair, Hx Section - x3, Hx Herniorrhaphy, Other - History of hernia re pair. Also history of perforated peptic ulcer. - Immunizations Hx Diphtheria, Pertussis, Tetanus Vaccination: Yes Review of Systems - Review of Systems -: Yes ROS unobtainable due to patient's medical condition Physical Exam - Vital signs Vitals: Resp Pulse Ox 18 99 02/08/20 11:46 02/08/20 11:46 - General General appearance: Unresponsive In distress: Severe - HEENT Pupils: Dilated, Fixed - Midline. - Respiratory Breath sounds: Other - Diminished in both bases. - Cardiovascular Heart sounds: S1 appreciated, S2 appreciated - Extremities General lower extremity: Other - Left lower extremity with intraosseous needle in the anterior proximal tibials surface no extravasation of fluids. No swelling - Neurological Neuro grossly intact: No - . Flaccid. No response to stimuli. Apnea. Cognition: Normal Orientation: AAOx4 Benedict Coma Scale Eye Opening: Spontaneous Benedict Coma Scale Verbal: Oriented Benedict Coma Scale Motor: Obeys Commands Benedict Coma Scale Total: 15 Speech: Normal Motor strength normal: LUE, RUE, LLE, RLE Sensory: Normal - Skin Skin Temperature: Cool Skin Moisture: Dry Course - Vital Signs Vital signs: Temp Pulse Resp BP Pulse Ox 89.8 F L 14 176/106 H 98 02/08/20 13:20 02/08/20 13:20 02/08/20 13:20 02/08/20 13:20 - Laboratory Result Diagrams: 02/08/20 11:49 02/08/20 11:49 Laboratory results interpreted by me: 02/08/20 02/08/20 02/08/20 11:49 11:49 11:49 MCV 105 H MCHC 30.1 L RDW 15.9 H Lymphocytes % (Manual) 47 H PT 17.6 H APTT 61.6 H D-Dimer 10.84 H ABG pH ABG pO2 ABG HCO3 ABG Total CO2 Chloride 108 H Carbon Dioxide 8 L* Anion Gap 27 H BUN 6 L Est GFR ( Amer) 55 L Est GFR (MDRD) Non-Af 45 L Glucose 144 H Lactic Acid AST 158 H ALT 70 H NT-Pro-B Natriuret Pep Total Protein 5.2 L Albumin 3.1 L Lipase 780.3 H Urine Protein Urine Glucose (UA) Urine Blood 02/08/20 02/08/20 02/08/20 11:49 11:49 12:20 MCV MCHC RDW Lymphocytes % (Manual) PT APTT D-Dimer ABG pH 6.82 L* ABG pO2 143.9 H ABG HCO3 6.0 L ABG Total CO2 7.2 L Chloride Carbon Dioxide Anion Gap BUN Est GFR ( Amer) Est GFR (MDRD) Non-Af Glucose Lactic Acid 19.4 H AST ALT NT-Pro-B Natriuret Pep 140 H Total Protein Albumin Lipase Urine Protein Urine Glucose (UA) Urine Blood 02/08/20 12:25 MCV MCHC RDW Lymphocytes % (Manual) PT APTT D-Dimer ABG pH ABG pO2 ABG HCO3 ABG Total CO2 Chloride Carbon Dioxide Anion Gap BUN Est GFR ( Amer) Est GFR (MDRD) Non-Af Glucose Lactic Acid AST ALT NT-Pro-B Natriuret Pep Total Protein Albumin Lipase Urine Protein >=500 H Urine Glucose (UA) 150 H Urine Blood MODERATE H 02/08/20 15:50 12 02/08/20 15:51 Metabolic acidosis noted elevated lactic acid of 19, left lipase elevated - Diagnostic Test Radiology reviewed: Image reviewed, Reports reviewed Radiology results interpreted by me: 02/08/20 15:47 Chest x-ray initial shows ET tube down lower than necessary needs to be pulled back 2cm right upper lobe greater than left upper lobe infiltrates. NG tube not in place Second chest x-ray shows ET tube in place NG tube barely in the stomach and appears to be coiled in the esophagus. Chest CTA shows no pulmonary emboli large infiltrate right upper lung and infiltrate also in the left upper lung. ET tube in place and NG tube coiled in the esophagus barely with the tip in the stomach. Abdomen pelvis CT the patient has chosen to leave the facility against medical advice. The relevant issues have been reviewed and discussed with the patient and family at the bedside. At the time of this assessment there is no indication for involuntary commitment. The patient is alert, oriented, and able to express clearly their reasoning for not wanting to remain in the emergency department for further treatment. The patient is not clinically psychotic, intoxicated, and denies and suicidal ideation. Differential or suspected diagnoses based on medical screening exam: . The patient is aware of the concerning diagnoses and acknowledges understanding of the reasons for the following recommendations: The following recommendations/services were offered and refused: The following risks were explained: , permanent disability, loss of function Clinical impression: Patient is competent to make decisions regarding the medical that is being offered. - EKG Interpretation by Me Additional EKG results interpreted by me: 02/08/20 15:43 Normal sinus rhythm rate of 98, right bundle branch block, inferior infarct old Procedures - Intubation Orotracheal Airway evaluation: Normal anatomy Mallampati Classification: Class 1 Medications: Other - No sedation required for intubation Intubation method: Nasotracheal Equipment used: Glidescope ETT size: 7.0 ETT secured at: Teeth ETT secured at (cm): 22 Breath Sounds after Intubation: Equal End tidal CO2 confirmed: Yes Tidal volume: 450 FiO2: 50 Respirations: 14 Pressure support: 5 Critical Care Note - Critical Care Note Total time excluding time spent on procedures (mins): 49 - Cardiogenic shock, hypothermia, flaccid motor strength, hypotension requiring thermal blanket IV fluids IV pressors IV antibiotics. Discharge - Discharge Clinical Impression: Cardiac arrest, Brain cancer, Cerebral herniation, Cardiogenic shock, Cardiac arrest with successful resuscitation Metastatic lung cancer (metastasis from lung to other site) Qualifiers: Laterality: right Qualified Code(s): C34.91 - Malignant neoplasm of unspecified part of right bronchus or lung Condition: Critical Disposition: ADMITTED INPATIENT Admitting Provider: Annel (Direct Sales Consultant) Unit Admitted: ICU Referrals: KARL WIN MD [Primary Care Provider] - Follow up as needed I personally performed the services described in the documentation, reviewed and edited the documentation which was dictated to the scribe in my presence, and it accurately records my words and actions.
--- NOTE | 2020-02-08 17:20 | CRITICAL CARE ADMISSION REPORT ---
HPI Date:: 02/08/20 Time:: 14:00 Reason for ICU Reason:: Post cardiac arrest, cerebral edema with early herniation HPI: Julissa Decker is a 54-year-old black female with a known history of metastatic lung cancer. She is not a part of our oncology service line. She was last known well this morning when her daughter spoke to her by phone. She was found by someone in the home that she lives with obtunded. EMS arrived on scene and found the patient in full cardiac arrest. Notes and discussion from ED: "1145 patient arrived via EMS, EMS reports patient was found unresponsive and pulseless in home bathroom beside the toilet. EMS states was asystole on scene, CPR started x "a few rounds", 4 epis given with 1 amp of narcan, then ROSC. states patients BPs were 80/50's, with an additional total of 3 epi pushes given and 900mls of NS bolus. states BGL was 152. reports only history is brain and lung cancer. states someone on scene reported patient had c/o headache 1 hour prior to being found unresponsive. patient noted to have IO in place to left tib/fib with NS infusing and size [address] with EMS bagging. 1146 Dr Hobson to bedside with RT present 1149 20g IV placed to the right forearm with blood obtained and sent to lab. Dr Hobson reports patients pupils are fixed and dilated 1151 Dr Hobson given verbal order for 2 NS bolus, started at this time with use of pressure bag. 1153 spoke to patients daughter Jo Short at [phone]. states patients only medical hx is the brain/lung cancer and is currently getting treatment. states patient is to remain a full code. 1157 EKG obtained and given to Dr Hobson 1200 BP 68/53 HR 97 NSR, Dr Hobson given verbal order for levophed. 1202 Dr Hobson noted to have intubated with size 7.0 ET tube with use of glidescope x 1 attempt, measuring at 22cm @ the teeth. positive color change with frederick breaths sounds heard. xray called for portable chest. 1205 levophed started at 4mcg/min at this time. patient placed on vent with settings as followed: PRVC, Tidal volume 450, PEEP 15, Rate 15, O2@ 40%. 1207 18guage IV placed to the left AC 1211 16Fr NG tube placed to left nare 1215 xray to bedside. chest xray obtained 1224 14Fr temp sensing li placed, core temp noted to be 89.8F. Dr Hobson made aware. 1230 patient placed in soft upper wrist restraints. 1235 rad called stating ET tubed needs to be pulled back, ET tubed pulled back 2 cm, measuring at 20cm at the teeth at present via RT. [address] 1305 patient transferred to room 5. report given to Jitendra STONE. aT 1248 est Levophed stopped, b/p 206/103." Patient noted to have some type of movement and was given rocuronium without sedation. The code care team was called to evaluate the patient but were unable to examine secondary to the use of neuromuscular blockade. Review of the CT scan shows extensive edema with possible stroke related to brain tumor. Has what appears to be uncal and transtentorial herniation syndro me. She is currently intubated. History obtained from:: ED, Daughter Jo [phone] - Diagnosis/Plan (1) Brain herniation Is this a current diagnosis for this admission?: Yes (3) Coma Qualifiers: Coma depth: [place] coma 3-8 Coma timing: in the field (EMT or ambulance) Qualified Code(s): R40.2431 - [place] coma scale score 3-8, in the field [EMT or ambulance] Is this a current diagnosis for this admission?: Yes (4) Cardiac arrest with successful resuscitation Is this a current diagnosis for this admission?: Yes (5) Metabolic acidosis Is this a current diagnosis for this admission?: Yes (6) Lactic acidosis Is this a current diagnosis for this admission?: Yes (7) Metastatic lung cancer (metastasis from lung to other site) Qualifiers: Laterality: right Qualified Code(s): C34.91 - Malignant neoplasm of unspecified part of right bronchus or lung Is this a current diagnosis for this admission?: Yes - . Plan Summary: This is an unfortunate situation. This patient has large tumor in the brain is now had a cardiac arrest with cerebral edema complicating and already altered neurological process. She is in post cardiac arrest syndrome and is comatose. Unfortunately, I am unable to determine neurological function secondary to recent paralyzation. She developed hypertension on blood pressure medications and I am concerned that that was a herniation ictus. Given the above we will bring her to the ICU and await neuromuscular blockade metabolism. Had a lengthy discussion with the daughter Jo who does not appear to be keenly aware of the extent of metastasis. Patient has been going to [facility]. He has not been seen for some time secondary to the pandemic crisis The daughter states that she spoke with her this morning and she appeared to be "normal". Suspicious that this patient has had some ongoing neurological dysfunction which may not have been recognized. She has not been seen by family for some time. The family has decided to progress to comfort care however we will be unable to do this until sedation and neuromuscular blockade are worn off. We will obviously need to screen for SARS, [id number] Have assured family patient's comfort and integrity. Past Medical History Cardiac Medical History: Reports: Hypertension Denies: Coronary Artery Disease Endocrine Medical History: Reports: Diabetes Mellitus Type 2 Denies: Diabetes Mellitus Type 1 Malignancy Medical History: Reports: Lung Cancer Psychiatric Medical History: Denies: Depression Past Surgical History Past Surgical History: Reports: Section - x3, Herniorrhaphy, Other - History of hernia repair. Also history of perforated peptic ulcer. Social/Family History - Social History Lives with: Other - Lives in multi apartment home with non-family members each assigned to 1 room Smoking Status: Unknown if Ever Smoked Frequency of Alcohol Use: None Hx Recreational Drug Use: No Drugs: None Hx Prescription Drug Abuse: No - Medication/Allergies Home Medications: Nystatin/Dexameth/Diphen [Magic Mouthwash] 10 ml PO QID 10/30/18 Oxycodone HCl [Oxy-Ir 5 mg Tablet] 5 mg PO Q4HP PRN 10/30/18 Levofloxacin [Levaquin 500 mg Tablet] 500 mg PO DAILY 7 Days #7 tablet 11/03/18 Allergies/Adverse Reactions: No Known Allergies Allergy (Verified 10/14/18 13:07) Review of Systems ROS unobtainable: Due to endotracheal tube, Due to mental status Physical Exam Vital Signs: Temp Pulse Resp BP Pulse Ox 89.8 F L 14 176/106 H 98 02/08/20 13:20 02/08/20 13:20 02/08/20 13:20 02/08/20 13:20 Intake & Output 02/07/20 02/08/20 02/09/20 06:59 06:59 06:59 Intake Total 816 Balance 816 General appearance: PRESENT: no acute distress, thin Exam: Thin emaciated comatose 54-year-old black female unresponsive pupils fixed and dilated Head exam: PRESENT: atraumatic, normocephalic Eye exam: PRESENT: conjunctival injection Ear exam: PRESENT: normal external ear exam Mouth exam: PRESENT: dry mucosa Teeth exam: PRESENT: edentulous Neck exam: ABSENT: JVD, lymphadenopathy, thyromegaly Respiratory exam: ABSENT: other - Lung sounds not auscultated secondary to the confines of PPE and poor auditory capability of disposable stethoscope Cardiovascular exam: PRESENT: RRR, other - Heart sounds not auscultated secondary to the confines of PPE and poor auditory capability of disposable stethoscope. ABSENT: bradycardia, irregular rhythm, tachycardia Pulses: ABSENT: normal dorsalis pedis pul GI/Abdominal exam: PRESENT: distended, other - Gastric sounds not auscultated secondary to the confines of PPE and poor auditory capability of disposable st ethoscope. ABSENT: ascites Rectal exam: PRESENT: deferred Gentrourinary exam: PRESENT: indwelling catheter Extremities exam: PRESENT: pedal edema Musculoskeletal exam: ABSENT: deformity, dislocation Neurological exam: PRESENT: altered - Patient is comatose, Veronica Coma Scale of 3 I Skin exam: PRESENT: dry. ABSENT: mottled Tubes/Lines: PRESENT: Endotracheal Tube, Nasogastic Tube, Other - Li type urinary catheter Laboratory/Radiographs Laboratory Results: 02/08/20 11:49 02/08/20 11:49 02/08/20 02/08/20 02/08/20 11:49 11:49 11:49 WBC 5.9 RBC 3.83 Hgb 12.1 Hct 40.3 MCV 105 H MCH 31.6 MCHC 30.1 L RDW 15.9 H Plt Count 171 Seg Neutrophils % Not Reportable Carbonic Acid HCO3/H2CO3 Ratio ABG pH ABG pCO2 ABG pO2 ABG HCO3 ABG O2 Saturation ABG Base Excess FiO2 Sodium 142.6 Potassium 3.8 Chloride 108 H Carbon Dioxide 8 L* Anion Gap 27 H BUN 6 L Creatinine 1.23 Est GFR ( Amer) 55 L Glucose 144 H Lactic Acid 19.4 H Calcium 9.1 Total Bilirubin 0.2 AST 158 H Alkaline Phosphatase 50 Total Protein 5.2 L Albumin 3.1 L Lipase 780.3 H Urine Color Urine Appearance Urine pH Ur Specific Hartman Urine Protein Urine Glucose (UA) Urine Ketones Urine Blood Urine Nitrite Ur Leukocyte Esterase Urine WBC (Auto) Urine RBC (Auto) 02/08/20 02/08/20 12:20 12:25 WBC RBC Hgb Hct MCV MCH MCHC RDW Plt Count Seg Neutrophils % Carbonic Acid 1.13 HCO3/H2CO3 Ratio 5:1 ABG pH 6.82 L* ABG pCO2 37.7 ABG pO2 143.9 H ABG HCO3 6.0 L ABG O2 Saturation 96.1 ABG Base Excess -27.3 FiO2 40% Sodium Potassium Chloride Carbon Dioxide Anion Gap BUN Creatinine Est GFR ( Amer) Glucose Lactic Acid Calcium Total Bilirubin AST Alkaline Phosphatase Total Protein Albumin Lipase Urine Color STRAW Urine Appearance SLIGHTLY-CLOUDY Urine pH 7.0 Ur Specific Hartman 1.007 Urine Protein >=500 H Urine Glucose (UA) 150 H Urine Ketones NEGATIVE Urine Blood MODERATE H Urine Nitrite NEGATIVE Ur Leukocyte Esterase NEGATIVE Urine WBC (Auto) 2 Urine RBC (Auto) 14 02/08/20 11:49 Troponin I 0.027 NT-Pro-B Natriuret Pep 140 H Impressions: Chest X-Ray 02/08/20 12:09 IMPRESSION: Marked right upper lobe opacity with minimal opacity at the left base. ETT is low. Should be pulled back 2 cm. NG tube coiled in the upper esophagus and the tip is proximal to the stomach. Head CT 02/08/20 12:12 IMPRESSION: Large mass effect in the right hemisphere with extensive vasogenic edema, midline shift, and obliteration the basal cisterns. EVIDENCE OF ACUTE STROKE: NO. Abdomen/Pelvis CTA 02/08/20 12:14 IMPRESSION: Gallstones. Vascular calcification. Marked gastric distention. The nasogastric tube is barely in the stomach. Note that the nasogastric tube is coiled in the esophagus. Chest/Abdomen CTA 02/08/20 12:14 IMPRESSION: Extensive right upper lobe opacity. Lesser left upper lobe opacity. Consistent with pneumonia. Possible aspiration. Pulmonary artery's not optimally visualized. No large proximal emboli. The nasogastric tube is coiled in the esophagus. The tip is in the stomach. All labs, radiographs, diagnostic studies and EKGs were personally reviewed: Yes In addition, reports of radiographic and diagnostic studies were read: Yes Critical Time Critical Time (minutes): 90 -: The care of a critically ill patient is dynamic. This note represents a static moment in the admission process. Orders and treatments may be given simultaneously and urgently, and time is not computer help desk representative of the treatment process. This patient requires Critical Care secondary to life threatening organ or limb dysfunction. Without Critical Care services, the patient is at risk for increased mortality and morbidity.
--- NOTE | 2020-02-08 18:23 | Progress Note ---
Provider Note Provider Note: Patient's chart reviewed and case discussed w/ Dr. Up. Have reviewed nursing notes, vital signs, laboratory results and imaging studies. Unfortunately, the patient's CT images reveal catastrophic findings of complete obliteration to the right lateral ventricle with a 2 cm leftward shift, extensive vasogenic edema to the right hemisphere, and extensive mass-effect. Dr. Up has reviewed the patients status and extremely poor prognosis with family members who have asked to transition focus of care to comfort. Agree with recommendations for Comfort Care status.
--- NOTE | 2020-02-08 22:29 | EKG REPORT ---
SEVERITY:- ABNORMAL ECG - SINUS RHYTHM RIGHT BUNDLE BRANCH BLOCK INFERIOR INFARCT, OLD : Confirmed by: Dora Lamas MD 08-Feb-2020 22:29:01
[2020-02-08] MEDS ORDERED: MORPHINE SULFATE 10 MG/ML INJ ONE (23:29)
[2020-02-08] MEDS: MORPHINE SULFATE 10 MG/ML INJ IV PRN (23:30)
[2020-02-09] MEDS ORDERED: ACETAMINOPHEN SOLN 325 MG/10.15 ML UDCUP ONE ×2 (02:22→13:51)
[2020-02-09] MEDS ORDERED: ACETAMINOPHEN 325 MG TABLET PO ONE (02:30)
[2020-02-09] MEDS: MIDAZOLAM HCL 50 MG/100 ML RTUINJ IV PRN (05:58)
--- NOTE | 2020-02-09 10:35 | CDI QUERY ---
CDI Query CDI Review: Dear Provider, PLEASE CLARIFY AND DOCUMENT IN PROGRESS NOTES AND DISCHARGE SUMMARY IF THE FOLLOWING CLINICAL FINDINGS ARE APPROPRIATE: ACUTE RESPIRATORY FAILURE ACUTE RESPIRATORY COLLAPSE OTHER FINDINGS: PT INTUBATED / BRAIN HERNIATION / UNRESPONSIVE
[2020-02-09] MEDS ORDERED: ACETAMINOPHEN SOLN 325 MG/10.15 ML UDCUP PO PRN (13:40)
[2020-02-09] MEDS: MORPHINE SULFATE 10 MG/ML INJ IV PRN (16:54)
--- NOTE | 2020-02-09 17:43 | PDOC CRITICAL CARE PROG REPORT ---
General Date:: 02/09/20 ICU Day:: 2 Ventilator Day:: 2 Hospital Day:: 2 Resuscitation Status: Comfort Measures Only Events in the past 12 to 24 Hours:: Patient admitted after what appears to be cocaine induced cardiac arrest which led to profound cerebral edema in the face of a large intracerebral tumor presumably from metastatic lung cancer. She has remained comatose but because she was in comfort care mode we maintained her on Versed. She has had no neurological function except for intact primitive respiratory rate Despite this being intact it is poor and ineffective. Cocaine and THC metabolites found in her urine. She has developed profound fever somewhat controlled by Tylenol. She has had tachycardia to which has improved with fluids and Tylenol. We are awaiting family for discussion on liberation from the ventilator and extubation for comfort care Family did arrive but while we were involved to the emergency the grew tired of waiting and left. We contacted by phone and they asked for termination of care. The family climbed to come in. Reason for ICU Addmission:: Post cardiac arrest, cerebral edema with early herniation - Medications: Medications reviewed and adjusted accordingly: Yes Sedation:: versed for comfort Physical Exam Vital Signs: Temp Pulse Resp BP Pulse Ox 103.5 F H 129 H 16 128/97 H 99 02/09/20 15:00 02/09/20 08:00 02/09/20 14:35 02/09/20 14:35 02/09/20 14:35 Intake & Output 02/08/20 02/09/20 02/10/20 06:59 06:59 06:59 Intake Total 1632 Output Total 2953 210 Balance -1321 -210 Weight 49.7 kg 49.7 kg Weight/Height Weight 49.7 kg Height 5 ft 1 in General appearance: PRESENT: no acute distress, thin Eye exam: PRESENT: conjunctival injection, conjunctiva pink, other - Pupils fixed and dilated. ABSENT: nystagmus Ear exam: PRESENT: normal external ear exam Mouth exam: PRESENT: moist, neck supple Neck exam: ABSENT: carotid bruit, JVD, lymphadenopathy, meningismus, thyromegaly, tracheal deviation Respiratory exam: PRESENT: tachypnea, other - Lung sounds not auscultated secondary to the confines of PPE and poor auditory capability of disposable stethoscope. ABSENT: accessory muscle use, unlabored Cardiovascular exam: PRESENT: RRR, tachycardia, other - Heart sounds not aus cultated secondary to the confines of PPE and poor auditory capability of disposable stethoscope. ABSENT: bradycardia Pulses: ABSENT: normal dorsalis pedis pul, +1 pedal pulses bilateral GI/Abdominal exam: PRESENT: soft, other - Gastric sounds not auscultated secondary to the confines of PPE and poor auditory capability of disposable stethoscope. ABSENT: ascites, firm, rigid, tenderness Gentrourinary exam: PRESENT: indwelling catheter Extremities exam: PRESENT: +1 edema Musculoskeletal exam: ABSENT: deformity, dislocation Neurological exam: PRESENT: altered - Comatose [place] Coma Scale 3T. FOUR score: 1-R Skin exam: PRESENT: dry, intact, warm. ABSENT: cyanosis, rash Tubes/Lines: PRESENT: Endotracheal Tube - Flores type urinary catheter, Nasogastic Tube Laboratory/Radiographs Laboratory Results: 02/08/20 11:49 02/08/20 11:49 02/08/20 11:49 Troponin I 0.027 NT-Pro-B Natriuret Pep 140 H Impressions: Chest X-Ray 02/08/20 12:09 IMPRESSION: Marked right upper lobe opacity with minimal opacity at the left base. ETT is low. Should be pulled back 2 cm. NG tube coiled in the upper esophagus and the tip is proximal to the stomach. Head CT 02/08/20 12:12 IMPRESSION: Large mass effect in the right hemisphere with extensive vasogenic edema, midline shift, and obliteration the basal cisterns. EVIDENCE OF ACUTE STROKE: NO. Abdomen/Pelvis CTA 02/08/20 12:14 IMPRESSION: Gallstones. Vascular calcification. Marked gastric distention. The nasogastric tube is barely in the stomach. Note that the nasogastric tube is coiled in the esophagus. Chest/Abdomen CTA 02/08/20 12:14 IMPRESSION: Extensive right upper lobe opacity. Lesser left upper lobe opacity. Consistent with pneumonia. Possible aspiration. Pulmonary artery's not optimally visualized. No large proximal emboli. The nasogastric tube is coiled in the esophagus. The tip is in the stomach. All labs, radiographs, diagnostic studies and EKGs were personally reviewed: Yes In addition, reports of radiographic and diagnostic studies were read: Yes Assessment and Plan - Diagnosis (1) Brain herniation Is this a current diagnosis for this admission?: Yes (3) Coma Qualifiers: Coma depth: Veronica coma 3-8 Coma timing: in the field (EMT or ambulance) Qualified Code(s): R40.2431 - [place] coma scale score 3-8, in the field [EMT or ambulance] Is this a current diagnosis for this admission?: Yes (4) Cardiac arrest with successful resuscitation Is this a current diagnosis for this admission?: Yes (5) Acute respiratory failure with hypoxia and hypercapnia Is this a current diagnosis for this admission?: Yes (6) Metabolic acidosis Is this a current diagnosis for this admission?: Yes (7) Lactic acidosis Is this a current diagnosis for this admission?: Yes (8) Metastatic lung cancer (metastasis from lung to other site) Qualifiers: Laterality: right Qualified Code(s): C34.91 - Malignant neoplasm of unspecified part of right bronchus or lung Is this a current diagnosis for this admission?: Yes (9) Cocaine abuse with intoxication Is this a current diagnosis for this admission?: Yes (10) Cocaine addiction Qualifiers: Substance use status: with unspecified cocaine-induced disorder Qualified Code(s): F14.29 - Cocaine dependence with unspecified cocaine-induced disorder Is this a current diagnosis for this admission?: Yes (11) Cocaine adverse reaction Qualifiers: Encounter type: initial encounter Qualified Code(s): T40.5X5A - Adverse effect of cocaine, initial encounter Is this a current diagnosis for this admission?: Yes Plan Summary: After lengthy discussion with family who elected not to be here the patient was terminally weaned and a compassionate fashion. Because we still do not know her SARS, 2-CoViD19 status she was extubated to a protective mask with assurance against airway obstruction. Because no family were available both nurse and myself were at bedside and were present when she passed. ET tube was removed personally by me approximately 1652, proximately 1704 she was asystolic but did become apneic prior to that. She was declared at 1710 as the official time Critical Time Critical Time (minutes): 70 Level of Care: ICU -: 1. The care of a critical patient is a dynamic process. This note is a sales representative adding machines synopsis but static in nature. The timeframe for treatments given in order is not necessarily the actual time these treatments may have been done. 2. This patient requires critical care secondary to ongoing requirements for therapy not offered or safe outside the critical care environment. Transfer to a lower level of care will result in altered life or limb morbidity and mortality. 3. Multidisciplinary rounds completed. 4. ABCDE bundle addressed.
--- NOTE | 2020-02-09 17:48 | Death Summary ---
Summary Date : 02/09/20 Time of :: 17:10 Autopsy: No - But under biomedical engineer jurisdiction Resuscitation Status: Comfort Measures Only Consulting Provider: Critical care - Final Diagnosis (1) Brain herniation Is this a current diagnosis for this admission?: Yes (3) Coma Is this a current diagnosis for this admission?: Yes (4) Cardiac arrest with successful resuscitation Is this a current diagnosis for this admission?: Yes (5) Acute respiratory failure with hypoxia and hypercapnia Is this a current diagnosis for this admission?: Yes (6) Metabolic acidosis Is this a current diagnosis for this admission?: Yes (7) Lactic acidosis Is this a current diagnosis for this admission?: Yes (8) Metastatic lung cancer (metastasis from lung to other site) Is this a current diagnosis for this admission?: Yes (9) Cocaine abuse with intoxication Is this a current diagnosis for this admission?: Yes (10) Cocaine addiction Is this a current diagnosis for this admission?: Yes (11) Cocaine adverse reaction Is this a current diagnosis for this admission?: Yes Hospital Course:: Patient admitted after cardiac arrest with known metastatic lung cancer with extensive metastatic disease to the brain. She had not had recent follow-up. She was last known well SundayFebruary 08, 2020. She was found by a in in the home that she lives in next to a toilet unresponsive. EMS arrived they found her in cardiac arrest She went through several rounds of ACLS and was brought to the emergency room where she was intubated. Work-up revealed large area of cerebral edema with a large tumor burden and herniation with loss of basal cisterns. Admitted to the ICU and had a primitive respiratory function but no other neurological function. Given 1 dose of mannitol in the emergency room but was hypotensive on vasopressor therapy initially. He then had an initial hypertensive event that probably herald brainstem herniation. She was found to have cocaine in her urine and the presumptive theory is that she had a cocaine induced cardiac event culminating in cerebral edema with a brain tumor already present that was quite large. Family came to bedside to discuss prognosis but left before a final decision could be made. After contacting by phone we spoke to the daughter Jo who asked for withdrawal of care and termination of the ventilator. There was no family present at bedside they declined to come to her room. Patient was discontinued from the ventilator approximately 1652 she became hypoxic throughout and then became apneic. Asystole occurred at 1704 and she wa s declared officially at 1710. Examiner was contacted and they have assumed jurisdiction due to the possibility of cocaine induced injury and possible trauma.
[2020-02-09 21:09] VITALS: BP 138/120
== END 2020-02-09 18:45 | disposition left against medical advice (07) | DRG 896 ==
LOC: ER 11:45 → EH 15:32 → ICU 17:39
PROVIDERS: ADMIT Internal Medicine Critical Care Medicine; ATTEND Internal Medicine Critical Care Medicine
PROC: 5A12012 Performance of Cardiac Output, Single, Manual (ICD-10-PCS; principal; 2020-02-08)
PROC: 5A1945Z Respiratory Ventilation, 24-96 Consecutive Hours (ICD-10-PCS; 2020-02-08)
PROC: 0BH17EZ Insertion of Endotracheal Airway into Trachea, Via Natural or Artificial Opening (ICD-10-PCS; 2020-02-08)
DX: F14.288 Cocaine dependence with other cocaine-induced disorder (principal); G93.6 Cerebral edema; G93.5 Compression of brain; R40.20 Unspecified coma; J96.01 Acute respiratory failure with hypoxia; J96.02 Acute respiratory failure with hypercapnia; E87.2 Acidosis; F14.229 Cocaine dependence with intoxication, unspecified; C79.31 Secondary malignant neoplasm of brain; C34.91 Malignant neoplasm of unspecified part of right bronchus or lung; I46.8 Cardiac arrest due to other underlying condition; R40.2431 Glasgow coma scale score 3-8, in the field [EMT or ambulance]; Z78.1 Physical restraint status; Z03.818 Encounter for observation for suspected exposure to other biological agents ruled out
CPT/HCPCS: 36415; 51702; 70450; 71045; 71275; 74174; 80053; 80307; 81001; 82140; 82803; 82962; 83605; 83690; 83880; 84443; 84484; 85025; 85379; 85610; 85730; 87040; 87070; 87086; 87635; 87804; 87880; 93005; 93010; 94002; 94003; 96365; 96367; 96368; 96375; 99291; 99292; C9113; J0692; J2150; J2250; J2270; J3370; J3490; J7030; J7060